=== PATIENT | male | born 1980 | race Caucasian/White ===

== ENCOUNTER → 2017-10-31 10:13 | Outpatient (CLI) | payer MEDICARE, MEDICAID, SELFPAY ==
[2017-10-31 13:55] LABS: Alanine Aminotransferase 29 U/L (12-78); Albumin Level 3.8 gm/dL (3.4-5.0); Alkaline Phosphatase 118 U/L (46-116); Anion Gap 13.5 mEq/L (5-15); Aspartate Amino Transferase 12 U/L (15-37); Bilirubin,Total 0.9 mg/dL (0.2-1.0); Blood Urea Nitrogen 10 mg/dL (7-18); Calcium 9.6 mg/dL (8.5-10.1); Carbon Dioxide 34 mmol/L (21.0-32.0); Chloride 93 mmol/L (98-107); Chol/HDL Ratio 4.5 (1-3.5); Cholesterol 153 mg/dL (140-200); Estimated Glomerular Filt Rate 53 ml/min (>60); GFR (African American) 64 ML/MIN (>60); HDL Cholesterol 34 mg/dL (27-67); LDL Cholesterol 62 mg/dL (0-130); Potassium 4.5 mmoL/L (3.5-5.1); Sodium 136 mmol/L (136-145); Thyroid Stimulating Hormone 2.21 uIU/ml (0.358-3.740); Total Protein,Serum 7.8 gm/dL (6.4-8.2); Triglycerides 284 mg/dL (30-200); VLDL Cholesterol 57 mg/dL (0-40)
[2017-10-31 13:56] LABS: Basophils % 0.7 % (0.1-2.0); Eosinophils # 0.1 K/mm3 (0.0-0.4); Hematocrit 48.1 % (42.0-52.0); Hemoglobin 16.3 g/dL (14.1-18.0); Lymphocytes # 1.7 K/mm3 (0.7-4.5); Lymphocytes % 24.8 K/mm3 (10-50); Mean Corpuscular HGB Conc 33.8 g/dL (31.8-35.4); Mean Corpuscular Hemoglobin 30.4 pg (27.0-31.2); Mean Corpuscular Volume 89.8 fl (80-94); Mean Platelet Volume 8.4 fl (7.4-10.4); Monocytes # 0.5 K/mm3 (0.1-1.0); Monocytes % 7.1 % (1.7-9.3); Neutrophils # 4.4 K/mm3 (1.8-7.8); Neutrophils % 65.5 % (37.0-80.0); Platelet Count 244 K/mm3 (142-424); Red Blood Count 5.36 M/mm3 (4.60-6.20); Red Cell Distribution Width 13.3 % (11.5-17.5); White Blood Count 6.7 K/mm3 (4.8-10.8)
[2017-10-31 14:04] LABS: Glucose 532 mg/dL (74-106)
[2017-10-31 14:39] LABS: Hemoglobin A1C 9.7 % (0.0-7.0)
== END ==
PROVIDERS: PCP Nurse Practitioner Family; Visit Provider Nurse Practitioner Family
DX: I10 Essential (primary) hypertension (principal); E11.9 Type 2 diabetes mellitus without complications
CPT/HCPCS: 36415; 80053; 80061; 83036; 84443; 85025

== ENCOUNTER 2018-01-10 14:08 | Emergency (ER) | payer MEDICARE, MEDICAID, SELFPAY ==
[2018-01-10 14:29] VITALS: BP 158/93; PULSE 111; RESP 20; TEMP 36.6; O2SAT 96; BMI 31.3
--- NOTE | 2018-01-10 14:45 | HMH.EDUTC ---
[facility] [place]: Left anterior shoulder pain Cellulitis Qualifiers: Site of cellulitis: extremity Site of cellulitis of extremity: upper extremity Laterality: left Qualified Code(s): L03.114 - Cellulitis of left upper limb Disposition: Home, Self-Care Condition on Discharge: Good Instructions: DI for Cellulitis -- Adult, DI for Shoulder Pain Additional Instructions: * Start antibiotic(s) immediately and be sure to take as ordered for the FULL length of time although you should start to see improvement over the next 24-48 hours. * Monitor closely. FU immediately for new or worsening symptoms ( including but not limited to redness, swelling, red streaking, fever, chills) AND in 48 hours for recheck. * Monitor Temp. Seek treatment if fever develops. * For pain/inflammation: Tylenol every 4 hours as needed no more then 5 times a day or 4000mg in 24 hours and/or ibuprofen every 6 hours as needed no more then 3200mg in 24 hours (as long as your primary care doctor has told you that it is ok to take both) for aches/pain. * For shoulder, rest, ice/warm compresses (whichever feels better), follow up with primary care. Negative xrays Prescriptions: cephALEXin [Cephalexin 500mg Tab] 500 mg PO QID #40 tab Referrals: Milvia Harris [Primary Care Provider] - (Call today. Request follow up in 48 hours for recheck and to discuss shoulder pain. Seek treatment immediately for any sign of worsening infection.) Time of Disposition: 16:10 Medical Decision Making - Mic Inquiry Pt receiving controlled substance: No Vital Signs: 01/10/18 14:29 Temperature 97.9 F Temperature Source Temporal Artery Scan Pulse Rate [Brachial] 111 H Respiratory Rate 20 Blood Pressure [Right Arm] 158/93 Blood Pressure Mean [Right Arm] 114 Blood Pressure Position [Right Arm] Sitting 02 Sat by Pulse Oximetry 96 - Radiology Data #1 Image(s): Shoulder, Wrist Image Reviewed: Yes I have reviewed radiologist's interpretation Preliminary Findings: Normal/NAD 1535: called to review w/ ER , Dr. Allen. Jamel, liquor rectifier, took message. Anshul then called [facility] and said to call radiologist as Dr. Allen not available. 1538: Osmin will complete yellow slip for radiologist to review. [facility] [place] - General Stated complaint: Knot on left shoulder & wrist pain Time Seen by Provider: 01/10/18 14:45 Mode of Arrival: Ambulatory Source of Information: Patient Limitations: No Limitations Description of Symptoms (Recalled from Triage Doc. by RN): PT STATES HE FELL ON 01/01 AND INJURIED HIS LEFT SHOULDER AND LEFT HAND. HE HAS NOT GOTTEN ANY BETTER SINCE THEN. HEENT Symptoms (Recalled from RN notes): No Resp Symptoms (Recalled from RN notes): No Skin Symptoms (Recalled from RN notes): No MS Symptoms (Recalled from RN notes): Yes Functional Status (Recalled from RN notes): NA - History of Present Illness Provider Complaint: Here w/ sister (POA) c/o left anterior shoulder pain. Thinks it feels swollen. Denies limited ROM. Also redness to dorsal aspect left hand. tender to touch. Stating both occurred after a fall (or possibly multiple falls) on (and around) 01/01. Sister reporting that at that time, pt was told to stop amitriptyline (2 tablets) and start doxepin for insomnia. He mixed up the medications and instead, took two doxepin. Sister reports pt was medication drunk and fell who knows how many times. No one is sure how he fell/landed. She has since gotten rid of all the discontinued medications and had pharmacy cancel any refills on discontinued medications. Patient hasn't fallen since. - Related Data Home Medications Medication Instructions Recorded Confirmed Canagliflozin [Invokana] 100 mg PO DAILY 01/10/18 01/10/18 Doxepin HCl [Sinequin 50mg capsule] 50 mg PO DAILY 01/10/18 01/10/18 Metformin HCl [Metformin HCl ER] 1,000 mg PO DAILY 01/10/18 01/10/18 glipiZIDE [Glipizide ER] 10 mg PO BID 01/10/18 01/10/18 Previous Rx's Medicatio
--- NOTE | 2018-01-10 14:54 | XR_ITS ---
XR shoulder LT min 2V HISTORY: ITS.REASON: fall 01/01, left anterior shoulder pain, no LROM ORDERING PHYSICIAN: David Michele PATIENT AGE: 37 years COMPARISON: None FINDINGS: No fracture or dislocation. No lytic or blastic change. There is normal mineralization. The joint spaces are well-preserved. No significant degenerative/arthritic changes. No erosive changes evident. IMPRESSION: Negative, no acute finding
--- NOTE | 2018-01-10 14:54 | XR_ITS ---
XR wrist LT min 3V HISTORY: ITS.REASON: fall 01/01, pain anterior wrist ORDERING PHYSICIAN: David Michele PATIENT AGE: 37 years COMPARISON: None FINDINGS: No fracture or dislocation. No lytic or blastic change. There is normal mineralization.. The joint spaces are well-preserved. No significant degenerative/arthritic changes. No erosive changes evident.. Nonspecific calcification is present along the anterolateral aspect of the of the distal radius at the radial styloid process. There is an old fracture of the scaphoid versus a bipartite scaphoid IMPRESSION: 1. No acute finding. 2. Bipartite scaphoid
--- NOTE | 2018-01-10 14:54 | ED_ITS ---
[facility] [place] Clinical Impression: Left anterior shoulder pain Cellulitis Qualifiers: Site of cellulitis: extremity Site of cellulitis of extremity: upper extremity Laterality: left Qualified Code(s): L03.114 - Cellulitis of left upper limb Disposition: Home, Self-Care Condition on Discharge: Good Instructions: DI for Cellulitis -- Adult, DI for Shoulder Pain Additional Instructions: * Start antibiotic(s) immediately and be sure to take as ordered for the FULL length of time although you should start to see improvement over the next 24-48 hours. * Monitor closely. FU immediately for new or worsening symptoms ( including but not limited to redness, swelling, red streaking, fever, chills) AND in 48 hours for recheck. * Monitor Temp. Seek treatment if fever develops. * For pain/inflammation: Tylenol every 4 hours as needed no more then 5 times a day or 4000mg in 24 hours and/or ibuprofen every 6 hours as needed no more then 3200mg in 24 hours (as long as your primary care doctor has told you that it is ok to take both) for aches/pain. * For shoulder, rest, ice/warm compresses (whichever feels better), follow up with primary care. Negative xrays Prescriptions: cephALEXin [Cephalexin 500mg Tab] 500 mg PO QID #40 tab Referrals: Milvia Harris [Primary Care Provider] - (Call today. Request follow up in 48 hours for recheck and to discuss shoulder pain. Seek treatment immediately for any sign of worsening infection.) Time of Disposition: 16:10 Medical Decision Making - Mic Inquiry Pt receiving controlled substance: No Vital Signs: 01/10/18 14:29 Temperature 97.9 F Temperature Source Temporal Artery Scan Pulse Rate [Brachial] 111 H Respiratory Rate 20 Blood Pressure [Right Arm] 158/93 Blood Pressure Mean [Right Arm] 114 Blood Pressure Position [Right Arm] Sitting 02 Sat by Pulse Oximetry 96 - Radiology Data #1 Image(s): Shoulder, Wrist Image Reviewed: Yes I have reviewed radiologist's interpretation Preliminary Findings: Normal/NAD 1535: called to review w/ ER , Dr. Allen. Jamel, motocross racer, took message. Anshul then called [facility] and said to call radiologist as Dr. Allen not available. 1538: Osmin will complete yellow slip for radiologist to review. [facility] [place] HPI - General Stated complaint: Knot on left shoulder & wrist pain Time Seen by Provider: 01/10/18 14:45 Mode of Arrival: Ambulatory Source of Information: Patient Limitations: No Limitations Description of Symptoms (Recalled from Triage Doc. by RN): PT STATES HE FELL ON 01/01 AND INJURIED HIS LEFT SHOULDER AND LEFT HAND. HE HAS NOT GOTTEN ANY BETTER SINCE THEN. HEENT Symptoms (Recalled from RN notes): No Resp Symptoms (Recalled from RN notes): No Skin Symptoms (Recalled from RN notes): No MS Symptoms (Recalled from RN notes): Yes Functional Status (Recalled from RN notes): NA - History of Present Illness Provider Complaint: Here w/ sister (POA) c/o left anterior shoulder pain. Thinks it feels swollen. Denies limited ROM. Also redness to dorsal aspect left hand. tender to touch. Stating both occurred after a fall (or possibly multiple falls) on (and around) 01/01. Sister reporting that at that time, pt was told to stop amitriptyline (2 tablets) and start doxepin for insomnia. He mixed up the medications and instead, took two doxepin. Sister reports pt was medication drunk and fell who knows how many times. No one is sure how he fell/landed. She has since gotten rid of all the discontinued medications and had pharmacy cancel a
[2018-01-10 16:10] VITALS: BP 158/93; PULSE 111; RESP 20; TEMP 36.6; O2SAT 96
== END 2018-01-10 16:15 | disposition home or self-care (01) ==
PROVIDERS: Emergency Provider Nurse Practitioner Family; PCP Family Medicine
DX: M25.512 Pain in left shoulder (principal); L03.114 Cellulitis of left upper limb; E11.9 Type 2 diabetes mellitus without complications; I10 Essential (primary) hypertension; F17.210 Nicotine dependence, cigarettes, uncomplicated
CPT/HCPCS: G0463; 73030; 73110; 99201

== ENCOUNTER → 2018-01-18 10:17 | Outpatient (CLI) | payer MEDICARE, MEDICAID, SELFPAY ==
--- NOTE | 2018-01-18 10:26 | XR_ITS ---
XR hand LT min 3V HISTORY: ITS.REASON: FALL,LT HAND PAIN,LT HIP PAIN,RT FOOT PAIN ORDERING PHYSICIAN: Sola Blanco PATIENT AGE: 37 years COMPARISON: None FINDINGS: No fracture or dislocation. No lytic or blastic change. There is normal mineralization.. The joint spaces are well-preserved. No significant degenerative/arthritic changes. No erosive changes evident.. There is a small rounded calcific density lateral to the distal aspect of the radius and may be due to an accessory center of ossification IMPRESSION: Negative, no acute finding
--- NOTE | 2018-01-18 10:26 | XR_ITS ---
XR hip LT 2-3V w/pelvis HISTORY: Left hip pain following injury ITS.REASON: FALL,LT HAND PAIN,LT HIP PAIN,RT FOOT PAIN ORDERING PHYSICIAN: Sola Blanco PATIENT AGE: 37 years COMPARISON: None FINDINGS: No fracture or dislocation is evident. No significant degenerative change. No lytic or blastic change. Unremarkable soft tissues. Mild endplate spurring is present on the right at L4-L5 IMPRESSION: Negative hip
--- NOTE | 2018-01-18 10:26 | XR_ITS ---
Right Foot 3 Views HISTORY: Right foot pain following injury ITS.REASON: FALL LT HAND PAIN, LT HIP PAIN,RT FOOT PAIN ORDERING PHYSICIAN: Sola Blanco PATIENT AGE: 37 years COMPARISON: None FINDINGS: No fracture or dislocation. No lytic or blastic change. There is normal mineralization.. The joint spaces are well-preserved. No significant degenerative/arthritic changes. No erosive changes evident. There is flexion of the second through fifth toes IMPRESSION: No acute finding. Flexion of the second through fifth toes of questioned clinical significance
== END ==
PROVIDERS: PCP Emergency Medicine; Visit Provider Nurse Practitioner Family
DX: M79.642 Pain in left hand (principal); M25.552 Pain in left hip; M79.671 Pain in right foot
CPT/HCPCS: 73130; 73502; 73630

== ENCOUNTER → 2019-12-05 09:44 | Outpatient (CLI) | payer MEDICARE, MEDICAID, SELFPAY ==
[2019-12-05 10:24] LABS: Basophils # 0.1 K/mm3 (0-0.2); Basophils % 1.1 % (0.1-2.0); Eosinophils # 0.4 K/mm3 (0.0-0.4); Eosinophils % 8.1 % (0.1-12.0); Hematocrit 48.8 % (42.0-52.0); Hemoglobin 16.3 g/dL (14.1-18.0); Lymphocytes # 1.3 K/mm3 (0.7-4.5); Lymphocytes % 28.8 % (10-50); Mean Corpuscular HGB Conc 33.4 g/dL (31.8-35.4); Mean Corpuscular Hemoglobin 30.3 pg (27.0-31.2); Mean Corpuscular Volume 90.5 fl (80-94); Mean Platelet Volume 9.1 fl (7.4-10.4); Monocytes # 0.3 K/mm3 (0.1-1.0); Neutrophils # 2.6 K/mm3 (1.8-7.8); Platelet Count 234 K/mm3 (142-424); Red Blood Count 5.39 M/mm3 (4.60-6.20); Red Cell Distribution Width 13.4 % (11.5-17.5); White Blood Count 4.7 K/mm3 (4.8-10.8)
[2019-12-05 11:47] LABS: Alanine Aminotransferase 43 U/L (21-72); Albumin Level 4.5 g/dL (3.4-5.0); Albumin/Globulin Ratio 1.4 (1.1-1.8); Alkaline Phosphatase 62 U/L (46-116); Anion Gap 14.3 mEq/L (5-15); Aspartate Amino Transferase 24 U/L (15-37); Bilirubin,Total 0.7 mg/dL (0.2-1.0); Blood Urea Nitrogen 18 mg/dL (7-18); Calcium 9.7 mg/dL (8.5-10.1); Carbon Dioxide 30 mmol/L (21.0-32.0); Chloride 104 mmol/L (98-107); Cholesterol 90 mg/dL (140-200); Creatinine,Serum 1.42 mg/dL (0.70-1.30); Estimated Glomerular Filt Rate 56 ml/min (>60); GFR (African American) 67 ML/MIN (>60); Globulin 3.3 gm/dl (1.3-3.2); Glucose 157 mg/dL (74-106); HDL Cholesterol 30 mg/dL (27-67); LDL Cholesterol 44 mg/dL (0-130); Potassium 5.3 mmoL/L (3.5-5.1); Sodium 143 mmol/L (137-145); T4 (Thyroxine) 7.7 ug/dl (4.7-13.3); Thyroid Stimulating Hormone 2.81 uIU/ml (0.358-3.740); Total Protein,Serum 7.8 g/dL (6.4-8.2); Triglycerides 80 mg/dL (30-200); VLDL Cholesterol 16 mg/dL (0-40)
[2019-12-05 19:48] LABS: Hemoglobin A1C 6.2 % (0.0-7.0)
[2019-12-06 10:51] LABS: Vitamin D 25 Hydroxy 15.7 ng/mL (30.0-100.0)
[2019-12-06 11:01] LABS: Creatinine, Urine 174.1 mg/dL (Not Estab.); Microalbumin, Urine 4.5 ug/mL (Not Estab.)
== END ==
PROVIDERS: Visit Provider Nurse Practitioner Family
DX: E11.9 Type 2 diabetes mellitus without complications (principal); I10 Essential (primary) hypertension; E55.9 Vitamin D deficiency, unspecified; Z79.84 Long term (current) use of oral hypoglycemic drugs
CPT/HCPCS: 36415; 80053; 80061; 82043; 82570; 82652; 83036; 84436; 84443; 85025

== ENCOUNTER → 2019-12-17 08:37 | Outpatient (CLI) | payer MEDICARE, MEDICAID, SELFPAY ==
[2019-12-17 11:15] LABS: Chloride 95 mmol/L (98-107); Potassium 5.3 mmoL/L (3.5-5.1); Sodium 136 mmol/L (136-145)
[2019-12-17 11:18] LABS: Anion Gap 17.3 mEq/L (5-15); Blood Urea Nitrogen 20 mg/dl (9-20); Calcium 10.4 mg/dl (8.4-10.2); Carbon Dioxide 29 mmol/L (22.0-30.0); Estimated Glomerular Filt Rate 61 ml/min (>60); GFR (African American) 74 ML/MIN (>60); Glucose 342 mg/dl (74-100)
== END ==
PROVIDERS: Visit Provider Nurse Practitioner Family
DX: E87.5 Hyperkalemia (principal); R79.89 Other specified abnormal findings of blood chemistry
CPT/HCPCS: 36415; 80048

== ENCOUNTER → 2020-02-26 14:59 | Outpatient (CLI) | payer MEDICARE, MEDICAID, SELFPAY ==
[2020-02-26 15:47] LABS: Chloride 101 mmol/L (98-107); Potassium 5.2 mmoL/L (3.5-5.1); Sodium 141 mmol/L (136-145)
[2020-02-26 15:49] LABS: Alanine Aminotransferase 23 U/L (12-78); Alkaline Phosphatase 53 U/L (38-126); Aspartate Amino Transferase 31 U/L (17-59); Bilirubin,Total 0.7 mg/dl (0.2-1.3); Blood Urea Nitrogen 19 mg/dl (9-20); Estimated Glomerular Filt Rate 67 ml/min (>60); GFR (African American) 81 ML/MIN (>60)
[2020-02-26 15:50] LABS: Albumin Level 5.2 g/dl (3.5-5.0); Albumin/Globulin Ratio 1.7 (1.1-1.8); Anion Gap 16.2 mEq/L (5-15); Calcium 10.4 mg/dl (8.4-10.2); Carbon Dioxide 29 mmol/L (22.0-30.0); Chol/HDL Ratio 2.4 (1-3.5); Cholesterol 97 mg/dl (140-200); Globulin 3.1 g/dL (1.3-3.2); Glucose 82 mg/dl (74-100); HDL Cholesterol 40 mg/dl (40-60); Total Protein,Serum 8.3 g/dl (6.3-8.2); Triglycerides 102 mg/dl (30-150); VLDL Cholesterol 20 mg/dL (0-40)
[2020-02-26 15:55] LABS: Basophils # 0.1 K/mm3 (0-0.2); Basophils % 2.3 % (0.1-2.0); Eosinophils # 0.1 K/mm3 (0.0-0.4); Eosinophils % 2.6 % (0.1-12.0); Hematocrit 50.1 % (42.0-52.0); Hemoglobin 16.1 g/dL (14.1-18.0); Lymphocytes # 1.4 K/mm3 (0.7-4.5); Lymphocytes % 31.6 % (10-50); Mean Corpuscular HGB Conc 32.2 g/dL (31.8-35.4); Mean Corpuscular Hemoglobin 30.3 pg (27.0-31.2); Mean Corpuscular Volume 94.3 fl (80-94); Mean Platelet Volume 8.9 fl (7.4-10.4); Monocytes # 0.3 K/mm3 (0.1-1.0); Neutrophils # 2.6 K/mm3 (1.8-7.8); Neutrophils % 56.4 % (37.0-80.0); Platelet Count 253 K/mm3 (142-424); Red Blood Count 5.31 M/mm3 (4.60-6.20); Red Cell Distribution Width 13.3 % (11.5-17.5); White Blood Count 4.5 K/mm3 (4.8-10.8)
[2020-02-26 16:02] LABS: Direct LDL Cholesterol 55.81 mg/dL (100-129)
[2020-02-26 16:09] LABS: T4 (Thyroxine) 8.7 ug/dl (5.53-11.0)
[2020-02-26 16:22] LABS: Thyroid Stimulating Hormone 3.54 uIU/mL (0.465-4.68)
[2020-02-26 20:45] LABS: Hemoglobin A1C 6.4 % (4.0-6.0)
[2020-02-28 11:20] LABS: Vitamin D 25 Hydroxy 39.7 ng/mL (30.0-100.0)
== END ==
PROVIDERS: Visit Provider Nurse Practitioner Family
DX: E11.9 Type 2 diabetes mellitus without complications (principal); Z79.84 Long term (current) use of oral hypoglycemic drugs
CPT/HCPCS: 80053; 80061; 82652; 83036; 84436; 84443; 85025

== ENCOUNTER → 2020-03-13 11:59 | Outpatient (CLI) | payer MEDICARE, MEDICAID, SELFPAY ==
[2020-03-13 13:35] LABS: Anion Gap 13.1 mEq/L (5-15); Blood Urea Nitrogen 24 mg/dl (9-20); Calcium 10.1 mg/dl (8.4-10.2); Carbon Dioxide 28 mmol/L (22.0-30.0); Chloride 101 mmol/L (98-107); Estimated Glomerular Filt Rate 61 ml/min (>60); GFR (African American) 74 ML/MIN (>60); Glucose 214 mg/dl (74-100); Potassium 5.1 mmoL/L (3.5-5.1); Sodium 137 mmol/L (136-145)
== END ==
PROVIDERS: Visit Provider Nurse Practitioner Family
DX: E87.5 Hyperkalemia (principal)
CPT/HCPCS: 36415; 80048

== ENCOUNTER → 2020-05-05 14:15 | Outpatient (CLI) | payer MEDICARE, MEDICAID, SELFPAY ==
--- NOTE | 2020-05-05 14:17 | XR_ITS ---
PROCEDURE: XR FOOT WT BEARING RT 3V CLINICAL INDICATION: pain COMPARISON: FTR3 FOOT-RT-3 VIEWS from 07/08/2014 [id number] XR foot RT min 3V from 01/18/2018 XR ANKLE WT BEARING RT MIN 3V from 05/05/2020 FINDINGS: No fracture or dislocation. No lytic or blastic change. There is normal mineralization. There is mild osteoarthritis with minimal hallux valgus of the 1st metatarsophalangeal joint with mild soft tissue swelling medially small area of dystrophic calcification noted at the talonavicular region anteriorly with borderline pes planus. Flexion deformity involves the 2nd toe. The There are minimal degenerative changes of the anterior aspect of the tail 0 tibial joint. There is a prominent posterior talar process of the talus Other findings:None. IMPRESSION: Minimal hallux valgus with mild osteoarthritis 1st MTP joint, flexion deformity 2nd toe, pes planus Mild osteoarthritic changes of the ankle with prominent posterior talar process noted Dictated by: Froy Markham MD 05/05/2020 14:51 Electronically signed by Froy Markham MD in [place] 05/05/2020 14:51
--- NOTE | 2020-05-05 14:17 | XR_ITS ---
PROCEDURE: XR FOOT WT BEARING RT 3V CLINICAL INDICATION: pain COMPARISON: FTR3 FOOT-RT-3 VIEWS from 07/08/2014 [id number] XR foot RT min 3V from 01/18/2018 XR ANKLE WT BEARING RT MIN 3V from 05/05/2020 FINDINGS: No fracture or dislocation. No lytic or blastic change. There is normal mineralization. There is mild osteoarthritis with minimal hallux valgus of the 1st metatarsophalangeal joint with mild soft tissue swelling medially small area of dystrophic calcification noted at the talonavicular region anteriorly with borderline pes planus. Flexion deformity involves the 2nd toe. The There are minimal degenerative changes of the anterior aspect of the tail 0 tibial joint. There is a prominent posterior talar process of the talus Other findings:None. IMPRESSION: Minimal hallux valgus with mild osteoarthritis 1st MTP joint, flexion deformity 2nd toe, pes planus Mild osteoarthritic changes of the ankle with prominent posterior talar process noted Dictated by: Froy Markham MD 05/05/2020 14:51 Electronically signed by Froy Markham MD in [place] 05/05/2020 14:51
--- NOTE | 2020-05-05 14:17 | XR_ITS ---
PROCEDURE: XR ANKLE WT BEARING LT MIN 3V CLINICAL INDICATION: wound Pain COMPARISON: XR FOOT WT BEARING LT 3V from 05/05/2020 FINDINGS: Minimal spurring along the anterior distal tibia. Postsurgical changes of the foot with a screw within the proximal aspect of the 3rd metatarsal. Hammertoe deformity involves the 2nd and 3rd digit IMPRESSION: Postsurgical and degenerative changes Dictated by: Froy Markham MD 05/05/2020 14:53 Electronically signed by Froy Markham MD in [place] 05/05/2020 14:53
[2020-05-05 14:51] LABS: Basophils % 0.7 % (0.1-2.0); Eosinophils # 0.1 K/mm3 (0.0-0.4); Eosinophils % 2.5 % (0.1-12.0); Hematocrit 45.8 % (42.0-52.0); Hemoglobin 15.9 g/dL (14.1-18.0); Lymphocytes # 1.9 K/mm3 (0.7-4.5); Lymphocytes % 36.5 % (10-50); Mean Corpuscular HGB Conc 34.8 g/dL (31.8-35.4); Mean Corpuscular Hemoglobin 31.2 pg (27.0-31.2); Mean Corpuscular Volume 89.6 fl (80-94); Mean Platelet Volume 7.5 fl (7.4-10.4); Monocytes # 0.3 K/mm3 (0.1-1.0); Monocytes % 5.7 % (1.7-9.3); Neutrophils # 2.9 K/mm3 (1.8-7.8); Neutrophils % 54.7 % (37.0-80.0); Platelet Count 203 K/mm3 (142-424); Red Blood Count 5.11 M/mm3 (4.60-6.20); Red Cell Distribution Width 13.4 % (11.5-17.5); White Blood Count 5.3 K/mm3 (4.8-10.8)
[2020-05-05 15:17] LABS: Erythrocyte Sedimentation Rate 2 mm/hr (0-15)
[2020-05-05 15:39] LABS: Chloride 99 mmol/L (98-107); Potassium 5.2 mmoL/L (3.5-5.1); Sodium 141 mmol/L (136-145)
[2020-05-05 15:42] LABS: Alanine Aminotransferase 32 U/L (12-78); Albumin Level 4.5 g/dl (3.5-5.0); Albumin/Globulin Ratio 1.6 (1.1-1.8); Alkaline Phosphatase 47 U/L (38-126); Anion Gap 16.2 mEq/L (5-15); Aspartate Amino Transferase 31 U/L (17-59); Bilirubin,Total 0.8 mg/dl (0.2-1.3); Blood Urea Nitrogen 19 mg/dl (9-20); Calcium 9.6 mg/dl (8.4-10.2); Carbon Dioxide 31 mmol/L (22.0-30.0); Estimated Glomerular Filt Rate 61 ml/min (>60); GFR (African American) 74 ML/MIN (>60); Globulin 2.8 g/dL (1.3-3.2); Glucose 165 mg/dl (74-100); Total Protein,Serum 7.3 g/dl (6.3-8.2)
[2020-05-05 15:48] LABS: C-Reactive Protein 1.2 mg/L (0-4)
== END ==
PROVIDERS: PCP Nurse Practitioner Family; Visit Provider Podiatrist
DX: E11.8 Type 2 diabetes mellitus with unspecified complications (principal); E11.621 Type 2 diabetes mellitus with foot ulcer; L97.509 Non-pressure chronic ulcer of other part of unspecified foot with unspecified severity
CPT/HCPCS: 36415; 73610; 73630; 80053; 85025; 85651; 86140

== ENCOUNTER 2020-05-19 18:35 | Emergency (ER) | payer MEDICARE, MEDICAID, SELFPAY ==
[2020-05-19 18:43] VITALS: BP 150/108; PULSE 120; RESP 16; TEMP 37.2; O2SAT 98; BMI 28.0
--- NOTE | 2020-05-19 18:44 | XR_ITS ---
PROCEDURE: XR FOOT RT MIN 3V CLINICAL INDICATION: fall two days ago with generalized swelling Pain COMPARISON: No exams were available for comparison FINDINGS: There is mild hallux valgus with mild osteoarthritic change of the 1st MTP joint. There is a 2 mm density along the medial aspect and distal aspect of the proximal phalanx of the 2nd toe suggesting an area dystrophic calcification or a radiopaque foreign body. No obvious fracture or dislocation. The joint spaces are well-preserved. No significant degenerative/arthritic changes. No erosive changes evident. Other findings:None. IMPRESSION: No acute fracture. Possible foreign body at the 2nd toe Dictated by: Froy Markham MD 05/20/2020 07:03 Electronically signed by Froy Markham MD in [place] 05/20/2020 07:03
--- NOTE | 2020-05-19 18:49 | HMH.EDLOEX ---
ED Disposition Clinical Impression: Cellulitis of foot Foot contusion Qualifiers: Encounter type: initial encounter Laterality: right Qualified Code(s): S90.31XA - Contusion of right foot, initial encounter Disposition: Home, Self-Care Condition on Discharge: Good Instructions: DI for Cellulitis -- Adult, DI for Contusion Additional Instructions: Follow-up with your tool checker in 2 to 3 days for reevaluation. Return to the emergency department for worsening symptoms, fever, other acute new concerns. Prescriptions: Doxycycline Hyclate [Doxycycline 100mg Capsule] 100 mg PO BID 7 Days #14 cap Prescription Printed - Critical Care Critical Care Time: No Attestation: On 05/19/20, the high probability of a clinically significant, sudden or life threatening deterioration of the following system(s) required my full and direct attention, intervention and personal management. The time I documented below is in addition to time spent performing reported procedures but includes the following listed in this critical care notation. Medical Decision Making - Medical Records Medical records reviewed: Yes: I reviewed the patient's medical records. - Mic Inquiry Pt receiving controlled substance: No Vital Signs: 05/19/20 18:43 Temperature 99 F Temperature Source Oral Pulse Rate [Left Radial] 120 H Respiratory Rate 16 Blood Pressure [Right Arm] 150/108 H Blood Pressure Mean [Right Arm] 122 Blood Pressure Position [Right Arm] Sitting 02 Sat by Pulse Oximetry 98 Oxygen Delivery Method Room Air Orders (Tests/Meds): ED MEDICATIONS Discontinued Medications Generic Name Dose Route Start Last Admin Trade Name Freq PRN Reason Stop Dose Admin Doxycycline Hyclate 100 mg 05/19/20 18:52 Vibra-Tab 100mg Tablet PO 05/19/20 18:53 ONCE STA Protocol Tetanus/Reduced Diphtheria/Acell Pertussis 0.5 ml 05/19/20 18:48 Adacel Tdap 0.5ml Syringe IM 05/19/20 18:49 .ONCE ONE ORDERS Category Date Time Status Foot XR right minimum 3 views [XR foot RT min 3V] Stat Exams 05/19/20 18:44 Taken - Radiology Data #1 Image(s): Foot/Toes Image Reviewed: Yes I reviewed the patient's radiology image Preliminary Findings: No Fracture Seen Medical Decision Narrative: Patient with cellulitis on the dorsum of the foot. X-ray shows no acute fracture or dislocation. He has chronic deformities of the toes. given doxycycline here and a prescription for the same outpatient. Advise follow-up with podiatry within the next several days. They actually already have an appointment in 2 days time. No abscess. Lower Extremity Injury HPI - General Stated Complaint: AO pulled off porch injured R foot 05/17/20 Time Seen by Provider: 05/19/20 18:49 Mode of Arrival: Ambulatory Source of Information: Patient, Spouse Limitations: No Limitations Description of Symptoms (Recalled from ER Triage Doc. by RN): TO ED PER PVT CAR PT STATES PULLED OFF PORCH BY DOG MONDAY INJURED RT FOOT. RT FOOT WITH SWELLING, REDNESS NOTED PT STATES HX OF NEUROPATHY. PT DENIES ANY NAUSEA, VOMITING, FEVER, CHILLS - History of Present Illness HPI Narrative: This is a 39-year-old male with a past medical history significant for diabetes, peripheral neuropathy who presents to the emergency department for evaluation of right foot injury 2 days ago. He had his dog on a leash and his dog saw a squirrel, ran and pulled the patient off of the porch. He sustained some bruising to the distal portion of the right foot and over the last 2 days has developed some redness over the dorsum of the foot. He is concerned about possible cellulitis. No fevers, vomiting, diarrhea. He has no pain in the foot because of his peripheral neuropathy. - Related Data Home Medications Medication Instructions Recorded Confirmed blood sugar diagnostic See Rx Instructions .ROUTE 12/04/19 05/12/20 .MEDSUPPLY #10 each blood-glucose meter See Rx Instru
[2020-05-19 19:13] VITALS: PULSE 109
[2020-05-19 19:21] VITALS: BP 158/88; PULSE 109; RESP 16; TEMP 36.7; O2SAT 98
== END 2020-05-19 19:23 | disposition home or self-care (01) ==
PROVIDERS: Emergency Provider Emergency Medicine; PCP Nurse Practitioner Family
DX: L03.115 Cellulitis of right lower limb (principal); S90.31XA Contusion of right foot, initial encounter; W17.89XA Other fall from one level to another, initial encounter; Y92.018 Other place in single-family (private) house as the place of occurrence of the external cause; E11.9 Type 2 diabetes mellitus without complications; Z79.84 Long term (current) use of oral hypoglycemic drugs; E78.5 Hyperlipidemia, unspecified; I10 Essential (primary) hypertension; Z23 Encounter for immunization
CPT/HCPCS: 73630; 90471; 90715; 99282

== ENCOUNTER → 2020-06-11 12:16 | Outpatient (CLI) | payer MEDICARE, MEDICAID, SELFPAY ==
[2020-06-11 12:25] LABS: Basophils # 0.1 K/mm3 (0-0.2); Basophils % 1.1 % (0.1-2.0); Eosinophils # 0.3 K/mm3 (0.0-0.4); Eosinophils % 5.4 % (0.1-12.0); Hematocrit 51.3 % (42.0-52.0); Hemoglobin 17.3 g/dL (14.1-18.0); Lymphocytes # 1.6 K/mm3 (0.7-4.5); Lymphocytes % 29.7 % (10-50); Mean Corpuscular HGB Conc 33.7 g/dL (31.8-35.4); Mean Corpuscular Volume 91.9 fl (80-94); Mean Platelet Volume 7.9 fl (7.4-10.4); Monocytes # 0.3 K/mm3 (0.1-1.0); Monocytes % 4.8 % (1.7-9.3); Neutrophils # 3.2 K/mm3 (1.8-7.8); Neutrophils % 58.9 % (37.0-80.0); Platelet Count 247 K/mm3 (142-424); Red Blood Count 5.59 M/mm3 (4.60-6.20); Red Cell Distribution Width 13.6 % (11.5-17.5); White Blood Count 5.5 K/mm3 (4.8-10.8)
[2020-06-11 12:30] LABS: Alanine Aminotransferase 44 U/L (12-78); Albumin/Globulin Ratio 1.5 (1.1-1.8); Alkaline Phosphatase 83 U/L (38-126); Anion Gap 18.7 mEq/L (5-15); Aspartate Amino Transferase 41 U/L (17-59); Bilirubin,Total 0.9 mg/dl (0.2-1.3); Blood Urea Nitrogen 14 mg/dl (9-20); Calcium 10.2 mg/dl (8.4-10.2); Carbon Dioxide 28 mmol/L (22.0-30.0); Chloride 99 mmol/L (98-107); Chol/HDL Ratio 2.8 (1-3.5); Cholesterol 97 mg/dl (140-200); Estimated Glomerular Filt Rate 67 ml/min (>60); GFR (African American) 81 ML/MIN (>60); Globulin 3.3 g/dL (1.3-3.2); Glucose 200 mg/dl (74-100); HDL Cholesterol 35 mg/dl (40-60); Potassium 4.7 mmoL/L (3.5-5.1); Sodium 141 mmol/L (136-145); Total Protein,Serum 8.3 g/dl (6.3-8.2); Triglycerides 188 mg/dl (30-150); VLDL Cholesterol 38 mg/dL (0-40)
[2020-06-11 12:41] LABS: Direct LDL Cholesterol 46.24 mg/dL (100-129)
[2020-06-11 12:47] LABS: T4 (Thyroxine) 6.7 ug/dl (5.53-11.0)
[2020-06-11 13:00] LABS: Thyroid Stimulating Hormone 2.91 uIU/mL (0.465-4.68)
[2020-06-11 13:26] LABS: Hemoglobin A1C 7.8 % (4.0-6.0)
[2020-06-21 18:47] LABS: 1,25 Dihydroxy Vitamin D 37 pg/mL (.); 1,25-Dihydroxy, Vitamin D-2 18 pg/mL (.); 1,25-Dihydroxy, Vitamin D-3 19 pg/mL (.)
== END ==
PROVIDERS: Visit Provider Nurse Practitioner Family
DX: E11.9 Type 2 diabetes mellitus without complications (principal); R53.83 Other fatigue; S90.30XA Contusion of unspecified foot, initial encounter; R20.8 Other disturbances of skin sensation; Z79.84 Long term (current) use of oral hypoglycemic drugs
CPT/HCPCS: 80053; 80061; 82652; 83036; 84436; 84443; 85025

== ENCOUNTER → 2020-10-14 12:03 | Outpatient (CLI) | payer MEDICARE, MEDICAID, SELFPAY ==
--- NOTE | 2020-10-14 12:08 | XR_ITS ---
PROCEDURE: XR FOOT WT BEARING LT 3V CLINICAL INDICATION: foot pain COMPARISON: CR [id number] XR foot RT min 3V from 01/18/2018 CR XR FOOT WT BEARING LT 3V from 05/05/2020 CR XR FOOT WT BEARING RT 3V from 05/05/2020 CR XR FOOT RT MIN 3V from 05/19/2020 FINDINGS: There is mild metatarsus varus. A small screws present in the proximal aspect of the 3rd metatarsal. Hammertoe deformity the 2nd and 3rd digit. Mild hypertrophic change along dorsal and proximal aspect of the navicular noted. There is fusion of the 2nd PIP joint. IMPRESSION: No acute finding. Chronic changes as described above Dictated by: Froy Markham MD 10/14/2020 14:59 Froy Markham MD in [place] 10/14/2020 14:59
--- NOTE | 2020-10-14 12:08 | XR_ITS ---
PROCEDURE: XR FOOT WT BEARING RT 3V CLINICAL INDICATION: foot pain COMPARISON: CR [id number] XR foot RT min 3V from 01/18/2018 CR XR FOOT WT BEARING LT 3V from 05/05/2020 CR XR FOOT WT BEARING RT 3V from 05/05/2020 CR XR FOOT RT MIN 3V from 05/19/2020 FINDINGS: There is mild hallux valgus with mild osteoarthritic change and bunion formation at the 1st metatarsophalangeal joint. There is some fragmentation at the distal aspect of the 2nd metatarsal consistent with Freiberg infarction/avascular necrosis. This has developed since the previous exam. Hammertoe deformity involves the 2nd 3rd and 4th toes. There is some cortical thickening involving the distal aspect of the 2nd metatarsal which may be due to old fracture. Other findings:There is mild pes planus IMPRESSION: 1. Pes planus with hallux valgus and osteoarthritis at the 1st MTP joint with bunion formation 2. 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 There is some cortical thickening of the 2nd metatarsal distally. Dictated by: Froy Markham MD 10/14/2020 14:58 Froy Markham MD in [place] 10/14/2020 14:58
[2020-10-14 13:24] LABS: Basophils % 0.4 % (0.1-2.0); Eosinophils # 0.1 K/mm3 (0.0-0.4); Hematocrit 47.3 % (42.0-52.0); Lymphocytes # 1.6 K/mm3 (0.7-4.5); Lymphocytes % 24.4 % (10-50); Mean Corpuscular HGB Conc 31.7 g/dL (31.8-35.4); Mean Corpuscular Hemoglobin 29.6 pg (27.0-31.2); Mean Corpuscular Volume 93.3 fl (80-94); Monocytes # 0.3 K/mm3 (0.1-1.0); Monocytes % 5.1 % (1.7-9.3); Neutrophils # 4.4 K/mm3 (1.8-7.8); Neutrophils % 68.1 % (37.0-80.0); Platelet Count 346 K/mm3 (142-424); Red Blood Count 5.07 M/mm3 (4.60-6.20); Red Cell Distribution Width 13.6 % (11.5-17.5); White Blood Count 6.5 K/mm3 (4.8-10.8)
[2020-10-14 13:47] LABS: Hemoglobin A1C 7.4 % (4.0-6.0)
[2020-10-14 15:08] LABS: Alanine Aminotransferase 19 U/L (12-78); Albumin Level 4.7 g/dl (3.5-5.0); Albumin/Globulin Ratio 1.4 (1.1-1.8); Alkaline Phosphatase 59 U/L (38-126); Anion Gap 13.7 mEq/L (5-15); Aspartate Amino Transferase 25 U/L (17-59); Bilirubin,Total 0.5 mg/dl (0.2-1.3); Blood Urea Nitrogen 17 mg/dl (9-20); Calcium 10.2 mg/dl (8.4-10.2); Carbon Dioxide 28 mmol/L (22.0-30.0); Chloride 104 mmol/L (98-107); Estimated Glomerular Filt Rate 67 ml/min (>60); GFR (African American) 81 ML/MIN (>60); Globulin 3.4 g/dL (1.3-3.2); Glucose 131 mg/dl (74-100); Potassium 4.7 mmoL/L (3.5-5.1); Sodium 141 mmol/L (136-145); Total Protein,Serum 8.1 g/dl (6.3-8.2)
[2020-10-14 15:11] LABS: Erythrocyte Sedimentation Rate 9 mm/hr (0-15)
[2020-10-14 15:13] LABS: C-Reactive Protein 2.7 mg/L (0-4)
== END ==
PROVIDERS: PCP Nurse Practitioner Family; Visit Provider Nurse Practitioner
DX: Z51.89 Encounter for other specified aftercare; E11.8 Type 2 diabetes mellitus with unspecified complications; M79.672 Pain in left foot; M79.671 Pain in right foot; Z79.84 Long term (current) use of oral hypoglycemic drugs
CPT/HCPCS: 36415; 73630; 80053; 83036; 85025; 85651; 86140; 87070; 87077; 87186; 87205

== ENCOUNTER → 2020-12-15 17:20 | Outpatient (CLI) | payer MEDICARE, MEDICAID, SELFPAY | PROVIDERS: Visit Provider Podiatrist | DX: E11.621 Type 2 diabetes mellitus with foot ulcer (principal); L97.511 Non-pressure chronic ulcer of other part of right foot limited to breakdown of skin; Z79.84 Long term (current) use of oral hypoglycemic drugs | CPT/HCPCS: 87070; 87077; 87186; 87205 ==

== ENCOUNTER 2020-12-28 10:00 | Outpatient (RCR) | payer MEDICARE, MEDICAID, SELFPAY ==
--- NOTE | 2020-12-21 10:50 | HMH.PTOPWND ---
Rehab Outpt Wound Evaluation Rehab OP Wound Evaluation Start: 12/21/20 09:52 Freq: Status: Active Protocol: Document 12/21/20 10:41 FLORES (Rec: 12/21/20 10:47 FLORES [id number]) Electronically Signed By Payam Dia, PT 12/21/20 10:41 Subjective/History History History Pt is 40 yowm who presents with R great toe wound x ~ 2-3 mos with after blister from poor fitting shoes. 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 He states, I didn 't even know anything was wrong until I pulled my sock off at night. He had cultures positive for MSSA and has been prescribed topical antibiotic ointment. Subjective Subjective He has no c/o pain at this time, Neuropathy in B feet to ankle proximally. Wound Eval Wound Right Great Toe Wound Type Diabetic Foot Ulcer Is This a Chronic Wound Yes Wound Length (cm) 1.6 Wound Width (cm) 1.6 Wound Bed Appearance Beefy Red,Yellow,Pale Percentage Granulated (%) 80 Percentage of Slough (%) 20 Wound Margins Description Macerated Surrounding Tissue Appearance Macerated Drainage Description Serosanguineous Drainage Amount Moderate Primary Dressing Silver Dressing Comment opticell Ag Wound Secondary Dressing Type Composite Comment optifoam gentle border lite. Wound Debridement Method Sharps,Forceps,Gauze Wound Debridement Amount of Tissue Minimal Removed Wound Debridement Result Healthy Tissue Revealed Dressing Change Patient Tolerance Tolerated Well Wound Problems/Impairments Impairments Problems/Impairmments Impaired Walking,Impaired Recreational Activities,Wound Care Needs,Subjective C/O Pain ,Impaired Self Care/Self Management Prognosis Rehab Potential Good Clinical Impression Consistent with Diagnosis Yes Short Term Goals Number of Weeks 4 Decrease Wound Area Yes: by 25% Decrease Drainage Yes: by 50% [employer] F[employer] And Wellness Director Goals Number of Weeks 8 Return to Recreational Activities Yes Decrease Wound Area Yes: by 100% Decrease Drainage Yes: by 100% Patient to be Ind w/ HEP Yes
== END 2020-12-28 10:05 | disposition home or self-care (01) ==
LOC: PT 10:00
PROVIDERS: PCP Nurse Practitioner Family; Visit Provider Podiatrist
DX: E11.621 Type 2 diabetes mellitus with foot ulcer (principal); L97.511 Non-pressure chronic ulcer of other part of right foot limited to breakdown of skin
CPT/HCPCS: 97162; 97597

== ENCOUNTER → 2021-01-06 08:43 | Outpatient (CLI) | payer MEDICARE, MEDICAID, SELFPAY ==
--- NOTE | 2021-01-06 08:51 | XR_ITS ---
PROCEDURE: XR SHOULDER RT MIN 2V CLINICAL INDICATION: right shoudler pain COMPARISON: CR SHOULDCMLT XR shoulder LT min 2V from 01/10/2018 FINDINGS: No fracture or dislocation. No lytic or blastic change. There is normal mineralization. The joint spaces are well-preserved. No significant degenerative/arthritic changes. No erosive changes evident. Other findings:None. IMPRESSION: No acute findings. Dictated by: Froy Markham MD 01/06/2021 13:01 Froy Markham MD in [place] 01/06/2021 13:01
== END ==
PROVIDERS: PCP Nurse Practitioner Family; Visit Provider Orthopaedic Surgery
DX: M25.511 Pain in right shoulder (principal)
CPT/HCPCS: 73030

== ENCOUNTER 2021-01-07 11:46 | Day surgery (SDC) | payer MEDICARE, MEDICAID, SELFPAY ==
[2021-01-07] VITALS (9 sets, daily range): BP systolic 133–157; BP diastolic 64–92; PULSE 66–93; RESP 16–18; TEMP 36.2–37.2; O2SAT 95–100; BMI 27.3
[2021-01-07 12:25] LABS: Basophils % 0.5 % (0.1-2.0); Eosinophils # 0.2 K/mm3 (0.0-0.4); Hematocrit 43.5 % (42.0-52.0); Hemoglobin 14.1 g/dL (14.1-18.0); Lymphocytes # 1.6 K/mm3 (0.7-4.5); Lymphocytes % 19.8 % (10-50); Mean Corpuscular HGB Conc 32.5 g/dL (31.8-35.4); Mean Corpuscular Hemoglobin 29.5 pg (27.0-31.2); Mean Corpuscular Volume 90.7 fl (80-94); Mean Platelet Volume 7.3 fl (7.4-10.4); Monocytes # 0.7 K/mm3 (0.1-1.0); Monocytes % 8.2 % (1.7-9.3); Neutrophils # 5.5 K/mm3 (1.8-7.8); Neutrophils % 69.5 % (37.0-80.0); Platelet Count 297 K/mm3 (142-424); Red Blood Count 4.79 M/mm3 (4.60-6.20); Red Cell Distribution Width 14.1 % (11.5-17.5); White Blood Count 7.9 K/mm3 (4.8-10.8)
--- NOTE | 2021-01-07 12:28 | ECG_ITS ---
APPROVED REPORT Exam: Resting ECG HR:76 bpm ECG Measurements Heart Rate 76 AXES GA 150 P 42 QRSd 78 QRS 101 QT 350 T 31 QTc 393 Conclusion Sinus rhythm with premature atrial complexes Rightward axis Borderline ECG Electronically signed by : Anshul Hernandez, 01/08/2021 11:41:37
[2021-01-07 12:31] LABS: Chloride 107 mmol/L (98-107); Potassium 4.7 mmoL/L (3.5-5.1); Sodium 145 mmol/L (136-145)
--- NOTE | 2021-01-07 12:33 | XR_ITS ---
PROCEDURE: XR FOOT WT BEARING RT 3V CLINICAL INDICATION: great toe ulcer COMPARISON: CR XR FOOT WT BEARING LT 3V from 05/05/2020 CR XR FOOT RT MIN 3V from 05/19/2020 CR XR FOOT WT BEARING LT 3V from 10/14/2020 CR XR FOOT WT BEARING RT 3V from 10/14/2020 FINDINGS: Hallux valgus. Hammertoe deformity the 2nd and 3rd toes. Soft tissue swelling is present involving the great toe. No bony destructive process evident. Lucency along the medial aspect of the distal aspect of the great toe which may be due to ulceration. No change fragmentation of the distal aspect of the 2nd metatarsal which may be due to Freiberg's infarction. IMPRESSION: Soft tissue swelling at the great toe with hallux valgus. No change cortical fragmentation of the distal aspect of the 2nd metatarsal Dictated by: Froy Markham MD 01/07/2021 17:09 Froy Markham MD in [place] 01/07/2021 17:09
[2021-01-07 12:34] LABS: Alanine Aminotransferase 15 U/L (12-78); Albumin Level 4.5 g/dl (3.5-5.0); Albumin/Globulin Ratio 1.2 (1.1-1.8); Alkaline Phosphatase 67 U/L (38-126); Anion Gap 14.7 mEq/L (5-15); Aspartate Amino Transferase 24 U/L (17-59); Bilirubin,Total 0.6 mg/dl (0.2-1.3); Blood Urea Nitrogen 19 mg/dl (9-20); Calcium 9.9 mg/dl (8.4-10.2); Carbon Dioxide 28 mmol/L (22.0-30.0); Estimated Glomerular Filt Rate 52 ml/min (>60); GFR (African American) 62 ML/MIN (>60); Globulin 3.9 g/dL (1.3-3.2); Glucose 140 mg/dl (74-100); Total Protein,Serum 8.4 g/dl (6.3-8.2)
[2021-01-07 12:39] LABS: C-Reactive Protein 44.5 mg/L (0-4)
[2021-01-07 12:51] LABS: Erythrocyte Sedimentation Rate 18 mm/hr (0-15)
[2021-01-07 13:11] LABS: Hemoglobin A1C 8.4 % (4.0-6.0)
[2021-01-07 14:06] LABS: Coronavirus 19 IgG Antibody Negative (Negative); Coronavirus 19 IgM Antibody Negative (Negative)
--- NOTE | 2021-01-07 16:32 | HMH.ANESI ---
[facility] Anesthesia Record Part I Intake, IV Amount: 900 Estimated blood loss (mL): 10 Urine output (mL): 0 Blood Pressure: 141/73 SaO2: 99 Pulse Rate: 93 Respiratory Rate: 18 Temperature: 98.9 F Patient is:: Drowsy Stable to PACU at:: 16:34
--- NOTE | 2021-01-07 16:33 | P.PN_ITS ---
[facility] Anesthesia Checklist - Patient Identification Patient Identification: Arm Band - Structural Data Admitted From: Home Planned Operative Procedure/s: Toe amputation Consent for Planned Operative Procedure(s) Verified: Yes - Additional verifications Anesthesia Reactions: No Hx Blood Transfusions: No Blood Transfusion Reaction: No - Airway Assessment C-Spine Mobility Assessed: Yes TMJ Mobility Assessed: Yes Dentition: Edentulous - Neurological Assessment Level of Consciousness: Awake - Anesthesia Plan Anesthesia Risk discussed: Yes Anesthesia Plan: Verified ASA Class: II Anesthesia Type: General [facility] History I have reviewed the patient's past medical history: Yes Medical History: Reports:: Diabetes Mellitus Type 2, Hyperlipidemia, Hypertension Denies:: Cancer, Diabetes Mellitus Type 1, Internal Pacemaker, MRSA, Seizures *Have you ever received a pneumonia vaccine?: No *Have you received a flu vaccine this season?: No Other Medical History: Reports: Other. Denies: Blood Transfusion Reaction Anesthesia experience/problems:: None Laterality Cases: Left: Other Other Surgeries: Yes: No Previous Surgery. No: Pacemaker Amputation: No Fractures: Yes (left foot) - *Social History Smoking Status: Heavy tobacco smoker Tobacco Type: smokeless tobacco # Packs/Day (cigarettes): 1 Alcohol Intake: never Substance Use Type: denies use *Occupational Status:: disabled Housing: house Household Members: other *Travel in the last 8 weeks: None Family Hx:: Diabetes, Hypertension, Cancer
--- NOTE | 2021-01-07 16:33 | HMH.OPNOTE ---
Date of procedure: 01/07/21 Pre-op Diagnosis:: 1. Right hallux osteomyelitis 2. Right foot cellulitis 3. Right diabetic foot infection 4. Right sub 4th metatarsal ulcer Post-op Diagnosis:: Same Procedure performed:: 1. Right hallux amputation 2. Right foot irrigation and debridement 3. Right sub 4th metatarsal ulcer excision and delayed primary closure Surgeon:: Brianda Barbosa DPM [employer]:: Other (Sharona Golden) Anesthesia: GETA, local (0.5% marcaine plain) Estimated blood loss (mL): 20 Clinical Note:: Patient is a 40-year-old diabetic male who presented to the clinic this morning with worsening right foot cellulitis and ulcer of the great toe that probes to the bone with purulence noted. X-rays 3 views right foot taken 01/07/2021. Images evaluated by myself. There is no obvious gas noted. There is ulceration noted to the right hallux. We discussed conservative versus surgical treatment options. Conservative treatment options include local wound care, oral and IV antibiotics, change in shoe wear, taping/padding, and off-loading. Discussed that patient would benefit from a wider and deeper shoe wear to accommodate the deformity. We need DM shoes. We discussed surgical intervention for amputation of the right great toe. Patient understands that there is a chance that the [toes can migrate to fill the gap or the foot may change shape after surgery. Patient also understands that they could have wound healing complications including delayed healing and infection. We discussed that if the wound does not heal, it is possible that they may need a more proximal amputation and could result in further loss of digits, loss of partial foot or loss of leg. We discussed the risks and benefits in great detail. Other surgical risks include: prolonged pain and swelling, further infection requiring oral or IV antibiotics, delay in healing of soft tissue or bone, nerve or blood vessel damage, CRPS/RSD, DVT, anesthesia complications, and even . All questions answered. Patient verbalized understanding. Consent obtained. Pre-op labs: ESR, CRP, Ha1c, CBC, CMP, EKG, covid. Patient does have a POA, his sister Yadira Jernigan, ([phone]). I did call and discussed the plan of care with the sister who has given verbal consent to proceed with surgery. She states the patient is not to have any pain medication that after his last surgery he had NSAIDs. e-Rx Doxycycline 100mg BID x 14 days (01/08-01/22/21), Zofran, Ibuprofen 800mg for pain. Operative findings:: Right medial plantar hallux with ulcer noted, measuring 1.5 x 1.2 x 0.6cm. Tracking, probes to bone. Purulence noted from plantar ulcer. There was increase edema and erythema with ascending cellulitis noted. The right sub 4th metatarsal ulcer was 0.5 x 0.3 x 0.2cm; 100% granular. Post hallux amputation there was no tracking up the tendons. The infection seemed to be localized to the toe. First metatarsal head intact with no obvious signs of osteomyelitis. Operative note:: On this date and time patient was deemed an appropriate surgical candidate. With informed consent signed, the patient was taken to the operating theater. The patient was positioned supine. General anesthesia was induced. No tourniquet used. Pre-op right hallux and ankle blocks given with 30 cc 0.5% marcaine plain. IV vancomycin given after cultures. Right hallux amputation, irrigation and debridement, ulcer excision: The right lower extremity was prepped and drapped in normal sterile fashion. Cellulitis noted around the ulcer. A fish mouth incision was mapped out. Utilizing a 15 blade dissection was carried down sharply to the level of the bone around the distal phalanx which was disarticulated from the proximal phalanx. The ulcer was removed in total and sent for gross path with a portion of the distal phalanx. All nonviable soft tissue was debrided. The distal phalanx bone was soft and crumbly and had a mild malodor to it. Portion of it was cut and sent for bone culture a
--- NOTE | 2021-01-07 16:36 | XR_ITS ---
PROCEDURE: XR FOOT RT MIN 3V CLINICAL INDICATION: toe amp nwb Follow-up toe amputation COMPARISON: CR XR FOOT RT MIN 3V from 05/19/2020 CR XR FOOT WT BEARING LT 3V from 10/14/2020 CR XR FOOT WT BEARING RT 3V from 10/14/2020 CR XR FOOT WT BEARING RT 3V from 01/07/2021 FINDINGS: Status post amputation at the 1st metatarsophalangeal joint. No bony destructive process at the distal 1st metatarsal. There is cortical regularity of the head of the 2nd metatarsal suggesting Freiberg's infarction. No other significant anomalies are evident. Other findings:None. IMPRESSION: Status post amputation at the 1st MTP joint. No change fragmentation head of the 2nd metatarsal Dictated by: Froy Markham MD 01/07/2021 16:57 Froy Markham MD in OV 01/07/2021 16:57
[2021-01-07 16:49] LABS: POC Glucose,Bedside 95 (70-110)
[2021-01-08 11:30] LABS: POC Glucose,Bedside 114 (70-110)
--- NOTE | 2021-01-08 15:34 | P.PN_ITS ---
[facility] Anesthesia Record Part II Discharge Time: 16:51 Destination: Surgical Day Care (OP Surgery) PACU nurse assessment reviewed?: Yes Patient Condition:: Good Anesthesia Complications:: None Swallowing reflex intact?: Yes Cyanosis?: No Blood Pressure: 133/76 Pulse Rate: 81 Temperature: 98.4 F Mental Status: Alert & Oriented Pain level:: 0 Nausea and/or vomitting:: None Intake, IV Amount: 0
[2021-01-08 15:35] VITALS: BP 133/76; PULSE 81; TEMP 36.9
== END 2021-01-07 17:23 | disposition home or self-care (01) ==
LOC: OR 11:47
PROVIDERS: PCP Nurse Practitioner Family; Visit Provider Podiatrist
PROC: (CPT 11042; principal; 2021-01-07 15:00)
DX: E11.69 Type 2 diabetes mellitus with other specified complication (principal); M86.171 Other acute osteomyelitis, right ankle and foot; E11.621 Type 2 diabetes mellitus with foot ulcer; L97.511 Non-pressure chronic ulcer of other part of right foot limited to breakdown of skin; Z79.84 Long term (current) use of oral hypoglycemic drugs; Z79.899 Other long term (current) drug therapy; B95.61 Methicillin susceptible Staphylococcus aureus infection as the cause of diseases classified elsewhere; L03.115 Cellulitis of right lower limb; M79.671 Pain in right foot
CPT/HCPCS: 11042; 28820; 36415; 73630; 80053; 82962; 83036; 85025; 85651; 86140; 86328; 87070; 87075; 87077; 87186; 87205; 88305; 88311; 93005; 96372; 96374; J3370

== ENCOUNTER → 2021-01-07 17:16 | Outpatient (CLI) | payer MEDICARE, MEDICAID, SELFPAY | PROVIDERS: Visit Provider Podiatrist | DX: Z51.89 Encounter for other specified aftercare; M86.9 Osteomyelitis, unspecified | CPT/HCPCS: 87070; 87077; 87186; 87205 ==

== ENCOUNTER → 2021-01-27 11:59 | Outpatient (CLI) | payer MEDICARE, MEDICAID, SELFPAY ==
[2021-01-27 12:19] LABS: Basophils # 0.1 K/mm3 (0-0.2); Basophils % 0.6 % (0.1-2.0); Eosinophils # 0.2 K/mm3 (0.0-0.4); Eosinophils % 2.7 % (0.1-12.0); Hematocrit 46.8 % (42.0-52.0); Hemoglobin 14.8 g/dL (14.1-18.0); Lymphocytes # 1.4 K/mm3 (0.7-4.5); Lymphocytes % 16.8 % (10-50); Mean Corpuscular HGB Conc 31.6 g/dL (31.8-35.4); Mean Corpuscular Hemoglobin 29.7 pg (27.0-31.2); Mean Corpuscular Volume 93.9 fl (80-94); Mean Platelet Volume 7.9 fl (7.4-10.4); Monocytes # 0.5 K/mm3 (0.1-1.0); Monocytes % 5.8 % (1.7-9.3); Neutrophils % 74.1 % (37.0-80.0); Platelet Count 270 K/mm3 (142-424); Red Blood Count 4.99 M/mm3 (4.60-6.20); Red Cell Distribution Width 14.5 % (11.5-17.5); White Blood Count 8.1 K/mm3 (4.8-10.8)
[2021-01-27 12:53] LABS: Alanine Aminotransferase 19 U/L (12-78); Albumin Level 4.6 g/dl (3.5-5.0); Albumin/Globulin Ratio 1.6 (1.1-1.8); Alkaline Phosphatase 55 U/L (38-126); Anion Gap 15.3 mEq/L (5-15); Aspartate Amino Transferase 23 U/L (17-59); Bilirubin,Total 0.4 mg/dl (0.2-1.3); Blood Urea Nitrogen 18 mg/dl (9-20); Calcium 10.6 mg/dl (8.4-10.2); Carbon Dioxide 29 mmol/L (22.0-30.0); Chloride 104 mmol/L (98-107); Estimated Glomerular Filt Rate 67 ml/min (>60); GFR (African American) 81 ML/MIN (>60); Globulin 2.9 g/dL (1.3-3.2); Glucose 218 mg/dl (74-100); Potassium 5.3 mmoL/L (3.5-5.1); Sodium 143 mmol/L (136-145); Total Protein,Serum 7.5 g/dl (6.3-8.2)
[2021-01-27 13:22] LABS: C-Reactive Protein < 0.3 mg/L (0-4)
[2021-01-27 13:42] LABS: Erythrocyte Sedimentation Rate 5 mm/hr (0-15)
== END ==
PROVIDERS: Visit Provider Podiatrist
DX: Z98.890 Other specified postprocedural states (principal); S90.31XA Contusion of right foot, initial encounter
CPT/HCPCS: 36415; 80053; 85025; 85651; 86140

== ENCOUNTER → 2021-04-16 15:26 | Outpatient (CLI) | payer MEDICARE, MEDICAID, SELFPAY ==
[2021-04-16 15:46] LABS: Basophils % 0.7 % (0.1-2.0); Eosinophils # 0.2 K/mm3 (0.0-0.4); Eosinophils % 3.3 % (0.1-12.0); Hematocrit 39.3 % (42.0-52.0); Hemoglobin 13.5 g/dL (14.1-18.0); Lymphocytes # 1.7 K/mm3 (0.7-4.5); Lymphocytes % 26.7 % (10-50); Mean Corpuscular HGB Conc 34.4 g/dL (31.8-35.4); Mean Corpuscular Hemoglobin 30.2 pg (27.0-31.2); Mean Corpuscular Volume 87.8 fl (80-94); Mean Platelet Volume 7.7 fl (7.4-10.4); Monocytes # 0.4 K/mm3 (0.1-1.0); Monocytes % 6.3 % (1.7-9.3); Platelet Count 239 K/mm3 (142-424); Red Blood Count 4.48 M/mm3 (4.60-6.20); Red Cell Distribution Width 13.5 % (11.5-17.5); White Blood Count 6.3 K/mm3 (4.8-10.8)
[2021-04-16 16:11] LABS: Alanine Aminotransferase 23 U/L (12-78); Albumin Level 4.6 g/dl (3.5-5.0); Albumin/Globulin Ratio 1.6 (1.1-1.8); Alkaline Phosphatase 52 U/L (38-126); Anion Gap 17.8 mEq/L (5-15); Aspartate Amino Transferase 29 U/L (17-59); Bilirubin,Total 0.6 mg/dl (0.2-1.3); Blood Urea Nitrogen 21 mg/dl (9-20); Calcium 9.5 mg/dl (8.4-10.2); Carbon Dioxide 24 mmol/L (22.0-30.0); Chloride 107 mmol/L (98-107); Estimated Glomerular Filt Rate 48 ml/min (>60); GFR (African American) 58 ML/MIN (>60); Globulin 2.8 g/dL (1.3-3.2); Glucose 109 mg/dl (74-100); Potassium 4.8 mmoL/L (3.5-5.1); Sodium 144 mmol/L (136-145); Total Protein,Serum 7.4 g/dl (6.3-8.2)
[2021-04-16 16:40] LABS: Erythrocyte Sedimentation Rate 25 mm/hr (0-15)
== END ==
PROVIDERS: Visit Provider Nurse Practitioner
DX: L97.512 Non-pressure chronic ulcer of other part of right foot with fat layer exposed; Z51.89 Encounter for other specified aftercare; E11.621 Type 2 diabetes mellitus with foot ulcer; Z79.84 Long term (current) use of oral hypoglycemic drugs
CPT/HCPCS: 36415; 80053; 85025; 85651; 86140

== ENCOUNTER → 2021-05-19 18:31 | Outpatient (CLI) | payer MEDICARE, MEDICAID, SELFPAY | PROVIDERS: Visit Provider Nurse Practitioner Family | DX: Z20.822 Contact with and (suspected) exposure to COVID-19 (principal); U07.1 COVID-19 | CPT/HCPCS: U0003 ==

== ENCOUNTER → 2021-06-21 09:48 | Outpatient (CLI) | payer MEDICARE, MEDICAID, SELFPAY ==
[2021-06-21 11:06] LABS: Hemoglobin A1C 7.8 % (4.0-6.0)
[2021-06-21 11:18] LABS: Chloride 104 mmol/L (98-107); Sodium 142 mmol/L (136-145)
[2021-06-21 11:19] LABS: Potassium 5.3 mmoL/L (3.5-5.1)
[2021-06-21 11:21] LABS: Alanine Aminotransferase 18 U/L (12-78); Alkaline Phosphatase 38 U/L (38-126); Aspartate Amino Transferase 41 U/L (17-59); Bilirubin,Total 0.8 mg/dl (0.2-1.3); Blood Urea Nitrogen 22 mg/dl (9-20); Estimated Glomerular Filt Rate 74 ml/min (>60); GFR (African American) 89 ML/MIN (>60)
[2021-06-21 11:22] LABS: Albumin Level 4.5 g/dl (3.5-5.0); Albumin/Globulin Ratio 1.6 (1.1-1.8); Anion Gap 17.3 mEq/L (5-15); Calcium 9.3 mg/dl (8.4-10.2); Carbon Dioxide 26 mmol/L (22.0-30.0); Globulin 2.9 g/dL (1.3-3.2); Glucose 140 mg/dl (74-100); Total Protein,Serum 7.4 g/dl (6.3-8.2)
[2021-06-21 11:27] LABS: C-Reactive Protein 0.6 mg/L (0-4)
== END ==
PROVIDERS: Visit Provider Podiatrist Foot & Ankle Surgery
DX: E11.40 Type 2 diabetes mellitus with diabetic neuropathy, unspecified (principal); M20.41 Other hammer toe(s) (acquired), right foot; Z79.84 Long term (current) use of oral hypoglycemic drugs
CPT/HCPCS: 36415; 80053; 83036; 86140

== ENCOUNTER → 2021-07-02 16:25 | Outpatient (CLI) | payer MEDICARE, MEDICAID, SELFPAY ==
[2021-07-02 18:37] LABS: Basophils # 0.1 K/mm3 (0-0.2); Basophils % 0.9 % (0.1-2.0); Eosinophils # 0.2 K/mm3 (0.0-0.4); Eosinophils % 3.7 % (0.1-12.0); Hematocrit 48.4 % (42.0-52.0); Hemoglobin 15.4 g/dL (14.1-18.0); Lymphocytes # 1.3 K/mm3 (0.7-4.5); Lymphocytes % 25.4 % (10-50); Mean Corpuscular HGB Conc 31.8 g/dL (31.8-35.4); Mean Corpuscular Hemoglobin 30.6 pg (27.0-31.2); Mean Corpuscular Volume 96.3 fl (80-94); Monocytes # 0.3 K/mm3 (0.1-1.0); Monocytes % 5.6 % (1.7-9.3); Neutrophils # 3.4 K/mm3 (1.8-7.8); Neutrophils % 64.3 % (37.0-80.0); Platelet Count 270 K/mm3 (142-424); Red Blood Count 5.02 M/mm3 (4.60-6.20); Red Cell Distribution Width 14.2 % (11.5-17.5); White Blood Count 5.2 K/mm3 (4.8-10.8)
== END ==
PROVIDERS: Visit Provider Nurse Practitioner Family
DX: S90.30XA Contusion of unspecified foot, initial encounter (principal); Z01.818 Encounter for other preprocedural examination
CPT/HCPCS: 85025

== ENCOUNTER → 2021-12-13 08:59 | Outpatient (CLI) | payer MEDICARE, MEDICAID, SELFPAY ==
[2021-12-13 09:43] LABS: Basophils % 0.5 % (0.1-2.0); Eosinophils # 0.1 K/mm3 (0.0-0.4); Eosinophils % 1.6 % (0.1-12.0); Hematocrit 47.6 % (42.0-52.0); Hemoglobin 15.9 g/dL (14.1-18.0); Lymphocytes # 1.6 K/mm3 (0.7-4.5); Lymphocytes % 21.1 % (10-50); Mean Corpuscular HGB Conc 33.3 g/dL (31.8-35.4); Mean Corpuscular Hemoglobin 30.6 pg (27.0-31.2); Mean Corpuscular Volume 91.8 fl (80-94); Mean Platelet Volume 7.8 fl (7.4-10.4); Monocytes # 0.5 K/mm3 (0.1-1.0); Monocytes % 6.1 % (1.7-9.3); Neutrophils # 5.5 K/mm3 (1.8-7.8); Neutrophils % 70.7 % (37.0-80.0); Platelet Count 260 K/mm3 (142-424); Red Blood Count 5.19 M/mm3 (4.60-6.20); Red Cell Distribution Width 13.7 % (11.5-17.5); White Blood Count 7.8 K/mm3 (4.8-10.8)
[2021-12-13 10:02] LABS: Chloride 101 mmol/L (98-107); Potassium 5.4 mmoL/L (3.5-5.1); Sodium 137 mmol/L (136-145)
[2021-12-13 10:04] LABS: Blood Urea Nitrogen 24 mg/dl (9-20); Estimated Glomerular Filt Rate 66 ml/min (>60); GFR (African American) 80 ML/MIN (>60)
[2021-12-13 10:05] LABS: Alanine Aminotransferase 26 U/L (12-78); Albumin Level 4.9 g/dl (3.5-5.0); Albumin/Globulin Ratio 1.7 (1.1-1.8); Alkaline Phosphatase 82 U/L (38-126); Anion Gap 12.4 mEq/L (5-15); Aspartate Amino Transferase 34 U/L (17-59); Bilirubin,Total 0.9 mg/dl (0.2-1.3); Calcium 9.6 mg/dl (8.4-10.2); Carbon Dioxide 29 mmol/L (22.0-30.0); Chol/HDL Ratio 2.3 (1-3.5); Cholesterol 97 mg/dl (140-200); Globulin 2.9 g/dL (1.3-3.2); Glucose 222 mg/dl (74-100); HDL Cholesterol 42 mg/dl (40-60); Total Protein,Serum 7.8 g/dl (6.3-8.2); Triglycerides 119 mg/dl (30-150); VLDL Cholesterol 24 mg/dL (0-40)
[2021-12-13 10:16] LABS: Direct LDL Cholesterol 37.55 mg/dL (100-129)
[2021-12-13 10:22] LABS: T4 (Thyroxine) 8.3 ug/dl (5.53-11.0)
[2021-12-13 10:36] LABS: Thyroid Stimulating Hormone 1.33 uIU/mL (0.465-4.68)
== END ==
PROVIDERS: Visit Provider Nurse Practitioner Family
DX: E66.3 Overweight; S90.30XA Contusion of unspecified foot, initial encounter; E08.621 Diabetes mellitus due to underlying condition with foot ulcer; L97.512 Non-pressure chronic ulcer of other part of right foot with fat layer exposed; Z79.84 Long term (current) use of oral hypoglycemic drugs
CPT/HCPCS: 36415; 80053; 80061; 83036; 84436; 84443; 85025

== ENCOUNTER → 2022-01-28 16:03 | Outpatient (CLI) | payer MEDICARE, MEDICAID, SELFPAY ==
--- NOTE | 2022-01-28 16:06 | XR_ITS ---
FINAL REPORT CLINICAL HISTORY: shoulder pain FINDINGS: RIGHT SHOULDER Three views demonstrate no acute fracture or dislocation. There is irregularity of the distal clavicle which may relate to chronic fracture. The visualized joint spaces are normally aligned. The soft tissues are unremarkable. IMPRESSION: No acute process. Reviewed, Interpreted and Dictated by Cole Hewitt III, MD Transcribed by Yvonne De Dios Authenticated by Cole Hewitt III, MD on 01/28/2022 04:43:00 PM [facility]
== END ==
PROVIDERS: PCP Nurse Practitioner Family; Visit Provider Nurse Practitioner Family
DX: M25.511 Pain in right shoulder (principal)
CPT/HCPCS: 73030

== ENCOUNTER 2022-09-26 22:01 | Emergency (ER) | payer MEDICARE, MEDICAID, SELFPAY ==
[2022-09-26 22:02] VITALS: BP 148/87; PULSE 107; RESP 18; TEMP 37.1; O2SAT 98; BMI 26.6
--- NOTE | 2022-09-26 22:40 | XR_ITS ---
PROCEDURE INFORMATION: Exam: XR Chest Exam date and time: 09/26/2022 10:38 PM Age: 41 years old Clinical indication: Shortness of breath; Additional info: SOA TECHNIQUE: Imaging protocol: Radiologic exam of the chest. Views: 2 views. COMPARISON: CR XR SHOULDER RT MIN 2V 01/28/2022 4:08 PM FINDINGS: Lungs: Tiny calcified granulomas in the left lung base. Pleural spaces: Unremarkable. No pleural effusion. No pneumothorax. Heart/Mediastinum: Unremarkable. No cardiomegaly. Bones/joints: Rotoscoliosis of the spine. IMPRESSION: No evidence of acute cardiopulmonary process.
--- NOTE | 2022-09-26 23:07 | ECG_ITS ---
APPROVED REPORT Exam: Resting ECG HR:103 bpm ECG Measurements Heart Rate 103 AXES IL 165 P 57 QRSd 90 QRS 82 QT 308 T 56 QTc 367 Conclusion SINUS TACHYCARDIA ABNORMAL RHYTHM ECG UNCONFIRMED REPORT Electronically signed by : Anshul Hernandez MD 09/27/2022 20:57:21
[2022-09-26 23:13] LABS: Basophils # 0.1 K/mm3 (0-0.2); Basophils % 0.6 % (0.1-2.0); Eosinophils # 0.1 K/mm3 (0.0-0.4); Hematocrit 46.3 % (42.0-52.0); Hemoglobin 14.6 g/dL (14.1-18.0); Mean Corpuscular HGB Conc 31.6 g/dL (31.8-35.4); Mean Corpuscular Hemoglobin 30.4 pg (27.0-31.2); Mean Corpuscular Volume 96.3 fl (80-94); Mean Platelet Volume 8.9 fl (7.4-10.4); Monocytes # 0.4 K/mm3 (0.1-1.0); Monocytes % 3.6 % (1.7-9.3); Neutrophils # 8.3 K/mm3 (1.8-7.8); Neutrophils % 84.9 % (37.0-80.0); Platelet Count 253 K/mm3 (142-424); Red Blood Count 4.81 M/mm3 (4.60-6.20); Red Cell Distribution Width 13.4 % (11.5-17.5); White Blood Count 9.8 K/mm3 (4.8-10.8)
[2022-09-26 23:28] LABS: Coronavirus 19, PCR Not Detected (NotDetected); Influenza A, PCR Not Detected (NotDetected); Influenza B, PCR Not Detected (NotDetected)
--- NOTE | 2022-09-27 | CT_ITS ---
PROCEDURE INFORMATION: Exam: CTA Chest With Contrast Exam date and time: 09/27/2022 12:51 AM Age: 41 years old Clinical indication: Shortness of breath; Additional info: SOA TECHNIQUE: Imaging protocol: Computed tomographic angiography of the chest with contrast. 3D rendering (Not supervised by radiologist): MIP and/or 3D reconstructed images were created by the technologist. Radiation optimization: All CT scans at this facility use at least one of these dose optimization techniques: automated exposure control; mA and/or kV adjustment per patient size (includes targeted exams where dose is matched to clinical indication); or iterative reconstruction. Contrast material: ISOVUE; Contrast volume: 70 ml; Contrast route: INTRAVENOUS (IV); COMPARISON: CR XR CHEST 2V 09/26/2022 10:38 PM FINDINGS: Pulmonary arteries: Normal. No pulmonary emboli. Aorta: Unremarkable. No aortic aneurysm. No aortic dissection. Lungs: There are subcentimeter calcified granulomas in the left upper lobe. Pleural spaces: Unremarkable. No pneumothorax. No pleural effusion. Heart: Unremarkable. No cardiomegaly. No pericardial effusion. Lymph nodes: Unremarkable. No enlarged lymph nodes. Liver: Large geographical area of hypoattenuation in the right lobe of the liver is probably focal fatty infiltration with underlying neoplasm to be excluded. Further follow-up is recommended. Spleen: Spleen is heterogenous due to early arterial injection. Multiple calcified punctate splenic granulomas. Bones/joints: Unremarkable. No acute fracture. Soft tissues: Unremarkable. IMPRESSION: 1. No evidence for pulmonary embolism or aortic dissection. 2. No evidence of acute cardiopulmonary process. 3. Large geographical area of hypoattenuation in the right lobe of the liver is probably focal fatty infiltration with underlying neoplasm to be excluded. Further follow-up is recommended.
[2022-09-27 00:31] LABS: Alanine Aminotransferase 123 U/L (12-78); Albumin Level 3.9 g/dl (3.5-5.0); Albumin/Globulin Ratio 1.3 (1.1-1.8); Alkaline Phosphatase 137 U/L (38-126); Anion Gap 4.4 mEq/L (5-15); Aspartate Amino Transferase 148 U/L (17-59); Bilirubin,Total 1.2 mg/dl (0.2-1.3); Blood Urea Nitrogen 41 mg/dl (9-20); Calcium 9.1 mg/dl (8.4-10.2); Carbon Dioxide 21 mmol/L (22.0-30.0); Chloride 97 mmol/L (98-107); Creatinine Clearance Estimated 69 mL/min (50-200); Estimated Glomerular Filt Rate 48 ml/min (>60); GFR (African American) 58 ML/MIN (>60); Globulin 2.9 g/dL (1.3-3.2); Potassium 4.4 mmoL/L (3.5-5.1); Sodium 118 mmol/L (136-145); Total Protein,Serum 6.8 g/dl (6.3-8.2)
[2022-09-27 00:47] LABS: Troponin I < 0.01 ng/ml (0.00-0.034)
--- NOTE | 2022-09-27 00:54 | HMH.EDSOB ---
Discharge Plan Disposition Patient Disposition: Home, Self-Care Chief Complaint: Shortness of Breath/Dyspnea Prescriptions Prescriptions: No Action ondansetron 4 mg tablet,disintegrating 4 mg PO Q6H PRN (Reason: nausea and vomiting) Qty: 30 2RF diclofenac sodium [Voltaren Arthritis Pain] 1 % gel 2 g TOPICAL TID Qty: 100 2RF Rx Instructions: apply to shoulder (DME) blood-glucose meter Misc 1 each .ROUTE .MEDSUPPLY Qty: 1 Label Comments: USE TO TEST BLOOD GLUCOSE ONCE DAILY AND NEEDED Rx Instructions: As directed ibuprofen 800 mg tablet 800 mg PO BID Qty: 60 3RF fenofibrate 54 mg tablet 54 mg PO DAILY Qty: 90 0RF prednisone 20 mg tablet 20 mg PO BID 5 Days Qty: 10 0RF naproxen 500 mg tablet 500 mg PO BID Qty: 30 0RF atorvastatin 20 mg tablet See Rx Instructions .ROUTE .COMPLEX Qty: 90 3RF Dose Instruction: TAKE 1 TABLET BY MOUTH ONCE DAILY FOR CHOLESTEROL Rx Instructions: TAKE 1 TABLET BY MOUTH ONCE DAILY FOR CHOLESTEROL Vraylar 1.5 mg capsule 1.5 mg PO DAILY Qty: 30 2RF doxepin 100 mg capsule 100 mg PO DAILY Qty: 90 2RF glipizide 10 mg tablet extended release 24hr 10 mg PO BID Qty: 60 3RF sodium polystyrene sulf-sorbtl 15-20 gram/60 mL suspension 60 ml PO ONCE Qty: 60 0RF Rx Instructions: x 1 dose Januvia 100 mg tablet See Rx Instructions .ROUTE .COMPLEX Qty: 90 0RF Dose Instruction: Take 1 tablet by mouth once daily Rx Instructions: Take 1 tablet by mouth once daily Jardiance 10 mg tablet 10 mg PO DAILY Qty: 30 2RF (DME) Accu-Chek Pua Plus test strp Strip See Rx Instructions .ROUTE .COMPLEX Qty: 100 0RF Dose Instruction: USE 1 STRIP TO CHECK GLUCOSE ONCE DAILY Rx Instructions: USE 1 STRIP TO CHECK GLUCOSE ONCE DAILY Referrals Follow up/Referrals: Sarika Benito APRN [Primary Care Provider] - See instructions Clinical Impressions Clinical Impression: Diabetes, Acute dyspnea Instructions Patient Instructions: DI for Shortness of Breath Discharge ED Provider: Rayshawn Millard Resp/SOB HPI General Chief Complaint: Shortness of Breath/Dyspnea Stated Complaint: covid pos 09/19, SOA Time Seen by Provider: 09/27/22 00:54 Mode of Arrival: Ambulatory Source of Information: Patient and Medical Record Limitations: No Limitations Description of Symptoms (Recalled from ER Triage Doc. by RN): pt states positive for covid on 09/19 pt c/o cough, SOA x 2 days History of Present Illness recent covid-19 and now sob MD Complaint: shortness of breath Onset (ago): day(s) Context: recent illness Severity: moderate Consistency/Duration: intermittent Associated symptoms: denies other symptoms Treatment prior to arrival: none Related Data Home oxygen amount: none Home Medications Medication Instructions Recorded Confirmed blood-glucose meter #1 ea 12/04/19 04/13/22 Previous Rx's Medication Instructions Recorded ibuprofen 800 mg tablet 800 mg PO BID pain, mild #60 tabs 01/07/21 ondansetron 4 mg disintegrating 4 mg PO Q6H PRN nausea and 03/25/21 tablet vomiting #30 tabs fenofibrate 54 mg tablet 54 mg PO DAILY Cholesterol #90 tabs 12/06/21 sodium polystyrene sulfonate 15 60 ml PO ONCE #60 mL 12/15/21 gram-sorbitol 20 gram/60 mL oral susp diclofenac sodium 1 % topical gel 2 g topical TID #100 grams 01/28/22 (Voltaren Arthritis Pain) sitagliptin phosphate 100 mg See Rx Instructions .Route 02/06/22 tablet (Januvia) .COMPLEX #90 tabs empagliflozin 10 mg tablet 10 mg PO DAILY #30 tabs 03/02/22 (Jardiance) naproxen 500 mg tablet 500 mg PO BID #30 tabs 04/13/22 prednisone 20 mg tablet 20 mg PO BID 5 days #10 tabs 04/13/22 atorvastatin 20 mg tablet See Rx Instructions .Route 04/14/22 .COMPLEX #90 tabs cariprazine 1.5 mg capsule 1.5 mg PO DAILY #30 caps 04/14/22 (Vraylar) doxepin 100 mg capsule 100 mg PO DAILY . #90 caps 04/14/22 glipizide 10 mg ta
[2022-09-27 00:55] LABS: Glucose 692 mg/dl (74-100)
[2022-09-27 01:49] LABS: POC Glucose,Bedside 409 (70-110)
[2022-09-27 01:50] VITALS: BP 139/78; PULSE 89; RESP 18; TEMP 37.1; O2SAT 98
== END 2022-09-27 01:56 | disposition home or self-care (01) ==
PROVIDERS: Emergency Provider Emergency Medicine; PCP Nurse Practitioner Family
DX: E11.65 Type 2 diabetes mellitus with hyperglycemia (principal); R06.02 Shortness of breath
CPT/HCPCS: 71046; 71275; 80053; 82962; 84484; 85025; 93005; 96365; 96366; 96375; 99285; C9803; Q9967; U0003; U0005

== ENCOUNTER → 2023-01-21 08:51 | Outpatient (CLI) | payer MEDICARE, MEDICAID, SELFPAY ==
--- NOTE | 2023-01-21 09:07 | XR_ITS ---
PROCEDURE INFORMATION: Exam: XR Right Foot Complete; Alignment Exam date and time: 01/21/2023 9:09 AM Age: 42 years old Clinical indication: Cellulitis and edema; Yes, it is localized; Foot; Bilateral; Additional info: Diabetic foot ulcer TECHNIQUE: Imaging protocol: Radiologic exam of the right foot. Views: 3 or more views. COMPARISON: CR XR FOOT RT MIN 3V 01/07/2021 4:45 PM FINDINGS: Bones/joints: Status post amputation at the 1st metatarsal-phalangeal joint. Interval surgical intervention at the 2nd metatarsal head, with significantly worsening cortical irregularity at the 2nd metatarsal-phalangeal joint. Continuing sclerosis within the proximal phalanx 2nd digit. New cortical irregularity within the distal aspect proximal phalanges digits 2 through 5, with increasing proximal interphalangeal joint spaces. Soft tissues: Normal. IMPRESSION: 1. Interval surgical intervention at the 2nd metatarsal head, with significantly worsening cortical irregularity at the 2nd metatarsal-phalangeal joint. Continuing sclerosis within the proximal phalanx 2nd digit. 2. New cortical irregularity within the distal aspect proximal phalanges digits 2 through 5, with increasing proximal interphalangeal joint spaces.
--- NOTE | 2023-01-21 09:07 | XR_ITS ---
PROCEDURE INFORMATION: Exam: XR Left Foot Complete; Alignment Exam date and time: 01/21/2023 9:09 AM Age: 42 years old Clinical indication: Cellulitis; Foot; Bilateral; Additional info: Diabetic foot ulcer TECHNIQUE: Imaging protocol: Radiologic exam of the left foot. Views: 3 or more views. COMPARISON: CR XR FOOT WT BEARING LT 3V 10/14/2020 12:32 PM FINDINGS: Bones/joints: Stable surgical changes at the 3rd metatarsal base. Stable mild metatarsus varus. Hammertoe deformities 2nd and 3rd digits. Osseous fusion at the 2nd proximal interphalangeal joint. No acute fracture or dislocation. Soft tissues: Normal. IMPRESSION: Stable chronic changes as detailed above.
[2023-01-21 10:05] LABS: Basophils # 0.1 K/mm3 (0-0.2); Basophils % 2.3 % (0.1-2.0); Eosinophils # 0.1 K/mm3 (0.0-0.4); Eosinophils % 2.2 % (0.1-12.0); Hematocrit 51.3 % (42.0-52.0); Hemoglobin 15.9 g/dL (14.1-18.0); Lymphocytes # 1.3 K/mm3 (0.7-4.5); Lymphocytes % 27.7 % (10-50); Mean Corpuscular Hemoglobin 29.5 pg (27.0-31.2); Monocytes # 0.3 K/mm3 (0.1-1.0); Neutrophils # 2.9 K/mm3 (1.8-7.8); Neutrophils % 60.8 % (37.0-80.0); Platelet Count 243 K/mm3 (142-424); Red Cell Distribution Width 14.3 % (11.5-17.5); White Blood Count 4.8 K/mm3 (4.8-10.8)
[2023-01-21 10:25] LABS: Chloride 102 mmol/L (98-107); Potassium 4.2 mmoL/L (3.5-5.1); Sodium 141 mmol/L (136-145)
[2023-01-21 10:28] LABS: Alanine Aminotransferase 26 U/L (12-78); Albumin Level 4.5 g/dl (3.5-5.0); Albumin/Globulin Ratio 1.8 (1.1-1.8); Alkaline Phosphatase 76 U/L (38-126); Anion Gap 15.2 mEq/L (5-15); Aspartate Amino Transferase 28 U/L (17-59); Bilirubin,Total 1.1 mg/dl (0.2-1.3); Blood Urea Nitrogen 7 mg/dl (9-20); Calcium 9.4 mg/dl (8.4-10.2); Carbon Dioxide 28 mmol/L (22.0-30.0); Estimated Glomerular Filt Rate 51 ml/min (>60); GFR (African American) 62 ML/MIN (>60); Globulin 2.5 g/dL (1.3-3.2); Glucose 194 mg/dl (74-100)
[2023-01-21 10:35] LABS: C-Reactive Protein 1.7 mg/L (0-4)
[2023-01-21 12:33] LABS: Erythrocyte Sedimentation Rate 18 mm/hr (0-15)
== END ==
PROVIDERS: PCP Nurse Practitioner Family; Visit Provider Nurse Practitioner Family
DX: M25.512 Pain in left shoulder; S91.301A Unspecified open wound, right foot, initial encounter; S91.302A Unspecified open wound, left foot, initial encounter
CPT/HCPCS: 36415; 73630; 80053; 85025; 85651; 86140

== ENCOUNTER → 2023-01-23 10:52 | Outpatient (CLI) | payer MEDICARE, MEDICAID, SELFPAY ==
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
== END ==
PROVIDERS: PCP Nurse Practitioner Family; Visit Provider Nurse Practitioner Family
DX: I70.213 Atherosclerosis of native arteries of extremities with intermittent claudication, bilateral legs (principal)
CPT/HCPCS: 93923

== ENCOUNTER 2023-01-23 12:50 | Outpatient (RCR) | payer MEDICARE, MEDICAID, SELFPAY | END 2023-01-23 13:45 | disposition home or self-care (01) | LOC: PT 12:50 | PROVIDERS: Visit Provider Nurse Practitioner Family | DX: E11.621 Type 2 diabetes mellitus with foot ulcer (principal); L97.519 Non-pressure chronic ulcer of other part of right foot with unspecified severity; Z79.84 Long term (current) use of oral hypoglycemic drugs | CPT/HCPCS: 97760 ==

== ENCOUNTER → 2023-02-02 06:04 | Outpatient (CLI) | payer MEDICARE, MEDICAID, SELFPAY ==
--- NOTE | 2023-02-02 06:05 | CT_ITS ---
FINAL REPORT TECHNIQUE: Thin section axial CT images with coronal and sagittal reformats were performed. 3D imaging was also submitted. This study was performed with techniques to keep radiation doses as low as reasonably achievable (ALARA). Individualized dose reduction techniques using automated exposure control or adjustment of mA and/or kV according to the patient''s size were employed. CLINICAL HISTORY: foot pain FINDINGS: CT RIGHT FOOT WITHOUT CONTRAST There has been amputation of the great toe at the 1st MTP joint. There are postoperative changes of the 2nd MTP with a wire seen in the head of the 2nd metatarsal. There are subchondral cysts versus chronic erosions at the head of the 2nd metatarsal and proximal aspect of the 2nd proximal phalanx. There is irregularity of the distal 2nd through 5th proximal phalanges consistent with postoperative change. There are mild degenerative changes. There are 2nd, 3rd and 4th digit hammertoes. IMPRESSION: Postoperative changes as described. Subchondral cysts versus chronic erosions at the head of the 2nd metatarsal and proximal aspect of the 2nd proximal phalanx. Reviewed, Interpreted and Dictated by Cole Hewitt III, MD Transcribed by Debra Chaney Authenticated and [facility]
== END ==
PROVIDERS: PCP Nurse Practitioner Family; Visit Provider Nurse Practitioner Family
DX: E11.622 Type 2 diabetes mellitus with other skin ulcer; L97.512 Non-pressure chronic ulcer of other part of right foot with fat layer exposed; Z79.84 Long term (current) use of oral hypoglycemic drugs
CPT/HCPCS: 73700

== ENCOUNTER → 2023-06-21 10:42 | Outpatient (CLI) | payer MEDICARE, MEDICAID, SELFPAY ==
--- NOTE | 2023-06-21 10:51 | XR_ITS ---
FINAL REPORT CLINICAL HISTORY: right 4th met wound infected x 2 days COMPARISON: 01/21/2023 FINDINGS: RIGHT FOOT 3 views of the right foot were obtained. There has been amputation of the right 1st digit. There is sclerosis and deformity of the 2nd proximal phalanx. There are hypertrophic changes at the 2nd metatarsophalangeal joint. Findings are concerning for sequela of septic arthritis and chronic osteomyelitis. A metallic density in the distal 2nd metatarsal measures 1.5 cm. There are mild hypertrophic changes of osteoarthritis at the 3rd, 4th, and 5th PIP joints. IMPRESSION: Postoperative changes from amputation of the right 1st digit. Findings concerning for sequela of septic arthritis and chronic osteomyelitis. Metallic density in the distal 2nd metatarsal. Reviewed, Interpreted and Dictated by Geronimo Ritter MD Transcribed by Lamar Hand Authenticated and [facility]
== END ==
PROVIDERS: PCP Nurse Practitioner Family; Visit Provider Podiatrist
DX: E11.621 Type 2 diabetes mellitus with foot ulcer (principal); L97.511 Non-pressure chronic ulcer of other part of right foot limited to breakdown of skin; M79.671 Pain in right foot; Z79.4 Long term (current) use of insulin
CPT/HCPCS: 73630

== ENCOUNTER → 2023-06-22 00:16 | Outpatient (CLI) | payer MEDICARE, MEDICAID, SELFPAY | PROVIDERS: PCP Podiatrist; Visit Provider Podiatrist | DX: E11.621 Type 2 diabetes mellitus with foot ulcer (principal); L97.519 Non-pressure chronic ulcer of other part of right foot with unspecified severity; B96.5 Pseudomonas (aeruginosa) (mallei) (pseudomallei) as the cause of diseases classified elsewhere; Z79.4 Long term (current) use of insulin | CPT/HCPCS: 87070; 87077; 87186; 87205 ==

== ENCOUNTER → 2023-06-28 10:51 | Outpatient (CLI) | payer MEDICARE, MEDICAID, SELFPAY ==
[2023-06-28 11:39] LABS: Basophils % 0.6 % (0.1-2.0); Eosinophils # 0.1 K/mm3 (0.0-0.4); Eosinophils % 0.8 % (0.1-12.0); Hematocrit 54.8 % (42.0-52.0); Hemoglobin 17.1 g/dL (14.1-18.0); Lymphocytes # 1.6 K/mm3 (0.7-4.5); Lymphocytes % 24.6 % (10-50); Mean Corpuscular HGB Conc 31.2 g/dL (31.8-35.4); Mean Corpuscular Hemoglobin 29.9 pg (27.0-31.2); Mean Corpuscular Volume 95.9 fl (80-94); Monocytes # 0.3 K/mm3 (0.1-1.0); Monocytes % 5.1 % (1.7-9.3); Neutrophils # 4.4 K/mm3 (1.8-7.8); Neutrophils % 68.8 % (37.0-80.0); Platelet Count 285 K/mm3 (142-424); Red Blood Count 5.71 M/mm3 (4.60-6.20); Red Cell Distribution Width 13.6 % (11.5-17.5); White Blood Count 6.4 K/mm3 (4.8-10.8)
[2023-06-28 12:10] LABS: Chloride 99 mmol/L (98-107); Potassium 5.1 mmoL/L (3.5-5.1); Sodium 136 mmol/L (136-145)
[2023-06-28 12:12] LABS: Blood Urea Nitrogen 17 mg/dl (9-20); Estimated Glomerular Filt Rate 33 ml/min (>60); GFR (African American) 40 ML/MIN (>60)
[2023-06-28 12:13] LABS: Alanine Aminotransferase 26 U/L (12-78); Albumin Level 4.4 g/dl (3.5-5.0); Albumin/Globulin Ratio 1.4 (1.1-1.8); Alkaline Phosphatase 110 U/L (38-126); Anion Gap 17.1 mEq/L (5-15); Aspartate Amino Transferase 28 U/L (17-59); Bilirubin,Total 0.8 mg/dl (0.2-1.3); Calcium 9.9 mg/dl (8.4-10.2); Carbon Dioxide 25 mmol/L (22.0-30.0); Globulin 3.1 g/dL (1.3-3.2); Glucose 318 mg/dl (74-100); Total Protein,Serum 7.5 g/dl (6.3-8.2)
[2023-06-28 12:19] LABS: C-Reactive Protein 1.8 mg/L (0-4)
[2023-06-28 13:39] LABS: Erythrocyte Sedimentation Rate 3 mm/hr (0-15)
== END ==
PROVIDERS: PCP Nurse Practitioner Family; Visit Provider Podiatrist
DX: L03.119 Cellulitis of unspecified part of limb (principal); M86.9 Osteomyelitis, unspecified; E11.621 Type 2 diabetes mellitus with foot ulcer; M25.512 Pain in left shoulder; Z79.4 Long term (current) use of insulin
CPT/HCPCS: 36415; 80053; 83036; 85025; 85651; 86140

== ENCOUNTER → 2023-07-05 06:40 | Outpatient (CLI) | payer MEDICARE, MEDICAID, SELFPAY ==
--- NOTE | 2023-07-05 06:43 | CT_ITS ---
FINAL REPORT TECHNIQUE: Thin section axial CT images with coronal and sagittal reformats were performed. This study was performed with techniques to keep radiation doses as low as reasonably achievable (ALARA). Individualized dose reduction techniques using automated exposure control or adjustment of mA and/or kV according to the patient's size were employed. CLINICAL HISTORY: right foot wound COMPARISON: 02/02/2023 FINDINGS: There has been an amputation of the great toe at the first metatarsal phalangeal joint. This was also present on the prior CT of January. There are postoperative changes in the second MTP with a wire in the head of the second metatarsal, also unchanged in appearance. There are subchondral cysts versus chronic erosions of the head of the second metatarsal and in the proximal second phalanx, once again unchanged. There are irregularities in the distal second through fifth proximal phalange ease consistent with postoperative change. There are mild degenerative changes as well as hammertoes of the second third and fourth toes. No new bony erosions or masses are seen. No fluid collections are identified. There is a soft tissue defect involving the plantar lateral forefoot. IMPRESSION: Multiple postoperative changes as described previously, without any new significant bony erosions or fluid collections identified. MRI is more effective for identifying subtle bone marrow edema and possible osteomyelitis cyst, so would consider MRI if clinically indicated. Reviewed, Interpreted and Dictated by Cole Hewitt III, MD Transcribed by Eugenia Andrea Authenticated and [facility]
== END ==
PROVIDERS: PCP Nurse Practitioner Family; Visit Provider Podiatrist
DX: E11.621 Type 2 diabetes mellitus with foot ulcer (principal); L97.511 Non-pressure chronic ulcer of other part of right foot limited to breakdown of skin; M86.9 Osteomyelitis, unspecified; Z79.4 Long term (current) use of insulin
CPT/HCPCS: 73700

== ENCOUNTER → 2023-07-12 10:12 | Outpatient (CLI) | payer MEDICARE, MEDICAID, SELFPAY ==
--- NOTE | 2023-07-12 10:28 | ECG_ITS ---
APPROVED REPORT Exam: Resting ECG HR:89 bpm ECG Measurements Heart Rate 89 AXES MI 161 P 39 QRSd 91 QRS 43 QT 313 T 37 QTc 360 Conclusion SINUS RHYTHM NORMAL ECG UNCONFIRMED REPORT Electronically signed by : Anshul Hernandez MD 07/13/2023 07:50:33
--- NOTE | 2023-07-12 10:37 | XR_ITS ---
FINAL REPORT TECHNIQUE: Chest PA & Lateral CLINICAL HISTORY: non healing wound of lower extremity. pre-op for right foot surgery. non smoker. COMPARISON: 09/26/2022 FINDINGS: 2 views of the chest were performed. The heart size is normal. The mediastinum is within normal limits. There is no acute cardiopulmonary process. There are no pleural effusions. There is no pneumothorax. The bony thorax appears intact. IMPRESSION: No acute cardiopulmonary process. Reviewed, Interpreted and Dictated by Geronimo Ritter MD Transcribed by Eugenia Andrea Authenticated and [facility]
[2023-07-12 10:49] LABS: Basophils # 0.1 K/mm3 (0-0.2); Basophils % 0.8 % (0.1-2.0); Eosinophils # 0.2 K/mm3 (0.0-0.4); Eosinophils % 2.9 % (0.1-12.0); Hematocrit 49.8 % (42.0-52.0); Hemoglobin 15.6 g/dL (14.1-18.0); Lymphocytes # 1.4 K/mm3 (0.7-4.5); Mean Corpuscular HGB Conc 31.3 g/dL (31.8-35.4); Mean Corpuscular Hemoglobin 29.9 pg (27.0-31.2); Mean Corpuscular Volume 95.8 fl (80-94); Mean Platelet Volume 8.1 fl (7.4-10.4); Monocytes # 0.5 K/mm3 (0.1-1.0); Monocytes % 7.7 % (1.7-9.3); Neutrophils % 65.6 % (37.0-80.0); Platelet Count 237 K/mm3 (142-424); Red Blood Count 5.19 M/mm3 (4.60-6.20); Red Cell Distribution Width 13.5 % (11.5-17.5); White Blood Count 6.1 K/mm3 (4.8-10.8)
[2023-07-12 11:15] LABS: Alanine Aminotransferase 17 U/L (12-78); Albumin Level 4.5 g/dl (3.5-5.0); Albumin/Globulin Ratio 1.5 (1.1-1.8); Alkaline Phosphatase 75 U/L (38-126); Anion Gap 17.1 mEq/L (5-15); Aspartate Amino Transferase 20 U/L (17-59); Bilirubin,Total 0.3 mg/dl (0.2-1.3); Blood Urea Nitrogen 23 mg/dl (9-20); Carbon Dioxide 26 mmol/L (22.0-30.0); Chloride 103 mmol/L (98-107); Estimated Glomerular Filt Rate 47 ml/min (>60); GFR (African American) 57 ML/MIN (>60); Glucose 222 mg/dl (74-100); Potassium 5.1 mmoL/L (3.5-5.1); Sodium 141 mmol/L (136-145); Total Protein,Serum 7.5 g/dl (6.3-8.2)
== END ==
PROVIDERS: PCP Nurse Practitioner Family; Visit Provider Podiatrist
DX: E11.40 Type 2 diabetes mellitus with diabetic neuropathy, unspecified (principal); E11.621 Type 2 diabetes mellitus with foot ulcer; E11.69 Type 2 diabetes mellitus with other specified complication; M25.512 Pain in left shoulder; L97.509 Non-pressure chronic ulcer of other part of unspecified foot with unspecified severity; M86.9 Osteomyelitis, unspecified; Z01.818 Encounter for other preprocedural examination; Z79.4 Long term (current) use of insulin; Z79.84 Long term (current) use of oral hypoglycemic drugs
CPT/HCPCS: 36415; 71046; 80053; 85025; 93005

== ENCOUNTER 2023-07-19 10:10 | Observation (INO) | payer MEDICARE, MEDICAID, SELFPAY ==
[2023-07-17 14:06] VITALS: BMI 32.9
[2023-07-19] VITALS (20 sets, daily range): BP systolic 103–160; BP diastolic 48–97; PULSE 77–117; RESP 16–20; TEMP 36.1–37.7; O2SAT 94–100; BMI 25.4
[2023-07-19 06:27] LABS: POC Glucose,Bedside 170 (70-110)
--- NOTE | 2023-07-19 06:54 | EXP.ANES.CKL ---
[facility] Disclaimer: The information contained in this section may have been updated after the patient was seen, as this information can be updated by other users. Medical History Abnormal ankle brachial index (ELLI) Diabetes mellitus, type 2 History of COVID-19 Hyperlipidemia Hypertension Leg pain Pneumonia Surgical History (Updated 07/19/23 @ 06:22 by Salomón Lehman RN) History of foot surgery Family History Other Family history of cancer Family history of diabetes mellitus type II Social History Smoking Status: Former smoker second hand exposure: No alcohol intake: never substance use type: denies use current occupational status: disabled Travel in the last 8 weeks: None household members: other housing: house current occupational exposures/hazards: No caffeine: No H Anesthesia Checklist Patient Identification Patient Identification: Arm Band and Family Structural Data Admitted From: Home Planned Operative Procedure/s: Right transmet Amputation Consent for Planned Operative Procedure(s) Verified: Yes Verified Documents: Surgical Consent NPO Status Verified Time NPO: 00:00 Additional verifications Patient : No Anesthesia Reactions: No Hx Blood Transfusions: No Blood Transfusion Reaction: No Cephalosporin Allergy: No Previous Colonoscopy: No Airway Assessment Mallampati Score:: Class II C-Spine Mobility Assessed: Yes TMJ Mobility Assessed: Yes Dentition: Edentulous Neurological Assessment Level of Consciousness: Awake, Alert and Appropriate Hx Seizures: No Numbness or tingling in extremities: No Anesthesia Plan Anesthesia Risk discussed: Yes ASA Class: III Anesthesia Type: MAC Preoperative Comments Pre-Operative Comments: NIDDM. No sensation in feet.
--- NOTE | 2023-07-19 09:05 | SUR.OPER ---
904: Family updated at 904
--- NOTE | 2023-07-19 09:47 | EXP.OP.NOTE ---
Date of procedure: 07/19/23 Pre-op Diagnosis:: Acquired foot deformity right side; Ulceration sub fourth metatarsal, chronic; history hallux amputation; history second toe and metatarsal surgery with retained broken off K-wire and cystic changes and hammertoe. Post-op Diagnosis:: Same Procedure performed:: Right foot transmetatarsal amputation Surgeon:: Osmin Byrd DPM DISPENSING LEAD:: Other Anesthesia: MAC Estimated blood loss (mL): 10 Operative findings:: Expected: Deformed toes/ ulcer sub fourth metatarsal/ history hallux amputation Right Operative note:: Right Foot Transmetatarsal amputation: Patient was seen in the preop holding area along with his sister who is his power of trademark attorney. I again discussed the condition with the patient and he was able to explain why he was there for transmetatarsal amputation due to chronic issues with his right foot. He says that his blood sugar has been running better the last several days and he is in good spirits and says there are been no changes in his recent medical history since we performed the initial physical exam preoperatively. He says that since he had multiple complications with this foot he wants to proceed with the transmetatarsal amputation. I again explained to he and his sister that there is still risks involved; and he still wants to proceed as this has continued to cause him problems with walking and everyday activity. He understands in the future he may require a below the knee amputation; however he and I have discussed that with no signs of active infection at the moment this is a better opportunity for him to have the best option to heal from this and proceed with his good quality life as he is able to. We explained also that postoperatively he will qualify medically for L5000 toe filler Insole to go in diabetic shoes. Reviewed the consent with the patient, initialed the right foot, and answered all questions to the patient satisfaction. The patient was then wheeled into the operating room and placed on the operating table in the supine position. Anesthesia was administered and the patient's right foot was prepped and draped in the usual usual aseptic manner. Esmarch bandage used to exsanguinate patient's right foot and ankle and tourniquet was inflated to 250 mmHg above the malleoli. Attention was then directed to the patient's forefoot and incision was made to circumscribe around the dorsal and plantar aspects of the toes which were then deepened through separate subtenons tissues cauterizing bleeders as necessary and then tenotomy Is Performed to Disarticulate the Second Third Fourth and Fifth Toes. Dissection Was Then Carried to Free up the Metatarsal Heads 1,2,3,4 and 5 and They Were All Visualized Well and Sagittal Bone Saw Was Used To Resect the Metatarsal Heads 1,2,3,4 and 5, with a Metatarsal Parabola Made and Visible, Preserving the Second Metatarsal Is Slightly Longer. We Found That Also during the Resection of the Second Metatarsal That the Retained K Wire That Had Been Broken off from a Prior Issue with the Patient Was Removed with the Head of the Metatarsal. Irrigated the Wound with Copious Months of Sterile Normal Saline. Cauterized Bleeders with Bovie. At This Point Reapproximated the Edges Identified the Plantar Wound Which Has Been a SubFourth Metatarsal and Resected It in Total through All Layers Epidermis Dermis and Subcutaneous Tissues. The Patient Also Had Had an Agitated Fifth Metatarsal Skin Blister from Applying the Bandages Too Tight at Home and Compromising Some of the Skin at That Layer As Well. With Closure of the Wound We Are Able to Modify and Flap the Plantar Medial Central Skin to Accommodate for the Lateral Defects of the Patient's Forefoot. To Facilitate an Help with Healing and Hemostasis, Applied Gelfoam inside the Wound. I Closed the Wound in Layers with Deep Tissues 2-0 Vicryl Subcutaneous Tissues with 3-0 Vicryl and the Skin Reapproximated and Held with 2-0 Nylon
--- NOTE | 2023-07-19 09:49 | P.PNANES_ITS ---
[facility] Anesthesia Record Part I Anesthesia Record I Intake, IV Amount: 900 Hydration: Adequate Estimated blood loss (mL): 10 Urine output (mL): 0 Blood Products used (#): none Blood Pressure: 128/84 SaO2: 94 Pulse Rate: 86 Airway Patency: Patent Respiratory Rate: 20 Temperature: 97.2 F Patient is:: Drowsy and Stable Stable to PACU at:: 09:35
[2023-07-19 09:53] LABS: POC Glucose,Bedside 183 (70-110)
--- NOTE | 2023-07-19 10:34 | HMH.PHAINT1 ---
Pharmacy Intervention Comments: MEDICATION RECONCILIATION COMPLETED ON PATIENT USING EXTERNAL FILL HISTORY FROM PHARMACY. -MICHELLE ABRAHAM, HENRYD
--- NOTE | 2023-07-19 13:03 | EXP.HP ---
History of Present Illness *Admission Date: 07/19/23 *Reason for visit:: Chief complaint: Right diabetic foot *History of present illness: This is a 42-year-old male that presented to his licensing worker for evaluation of his right foot chronic diabetic ulcerations not responding to conservative therapy. He described diminished sensation and poor wound healing. He was offered the opportunity for surgical correction and the patient was amenable. He underwent right TMA today (07/19/2023) with strict nonweightbearing and overnight monitoring postsurgically. He reports adequate pain control and denies fever, chills, chest pain, dyspnea, nausea, vomiting or diarrhea. He tolerated his perioperative IV antibiotic therapy with no adverse events. Nursing staff report that he remains afebrile with stable vital signs and saturating appropriately on room air. [facility] Medical History (Updated 07/19/23 @ 16:03 by Wilver Duran MD) Diabetes mellitus, type 2 History of COVID-19 Hyperlipidemia Hypertension Osteoarthritis Surgical History (Updated 07/19/23 @ 16:07 by Wilver Duran MD) History of foot surgery Family History Other Family history of cancer Family history of diabetes mellitus type II Social History Smoking Status: Former smoker second hand exposure: No alcohol intake: never substance use type: denies use current occupational status: disabled Travel in the last 8 weeks: None household members: other housing: house current occupational exposures/hazards: No caffeine: No Review of Systems Review of Systems Review of systems:: pertinent systems reviewed and negative unless documented below *Cardiovascular Cardiovascular: Denies chest pain and Denies dyspnea *Respiratory Respiratory: Denies dyspnea Meds Home Medications and Allergies Home Medications Medication Instructions Recorded Confirmed Type blood-glucose meter #1 ea 12/04/19 07/19/23 History fenofibrate 54 mg tablet 54 mg PO DAILY Cholesterol #90 tabs 12/06/21 07/19/23 Rx glipizide 10 mg tablet, extended 10 mg PO BID Diabetes #60 tabs 04/14/22 07/19/23 Rx release 24 hr lisinopril 5 mg tablet 5 mg PO DAILY High Blood Pressure 02/13/23 07/19/23 History empagliflozin 25 mg tablet 25 mg PO DAILY Diabetes 02/22/23 07/19/23 History (Jardiance) fluticasone propionate 50 1 spray intranasal DAILY Allergy 02/22/23 07/19/23 History mcg/actuation nasal Symptoms spray,suspension insulin glargine 100 unit/mL (3 17 unit SQ DAILY Diabetes 02/22/23 07/19/23 History mL) subcutaneous pen (Lantus Solostar U-100 Insulin) semaglutide 7 mg tablet (Rybelsus) 7 mg PO DAILY Diabetes 02/22/23 07/19/23 History atorvastatin 20 mg tablet 20 mg PO DAILY Cholesterol 07/19/23 07/19/23 History blood sugar diagnostic (Accu-Chek 07/19/23 07/19/23 History Pau Plus test strips) doxepin 100 mg capsule 100 mg PO DAILY Mood 07/19/23 07/19/23 History New Prescriptions to Start Prescriptions: Allergies Allergy/AdvReac Type Severity Reaction Status Date / Time No Known Allergies Allergy Verified 07/19/23 06:19 Exam Data for Last 24 hours Vital signs and Labs for Last 24 Hours: Temp Pulse Resp BP Pulse Ox O2 Del Method 97.8 F 81 18 103/67 L 98 Room Air 07/19/23 10:05 07/19/23 10:05 07/19/23 10:05 07/19/23 10:05 07/19/23 10:05 07/19/23 12:42 Laboratory Results - last 24 hr 07/19/23 06:18: POC Glucose 170 H 07/19/23 09:47: POC Glucose 183 H I & O for Last 24 hours: Intake & Output 07/16/23 07/17/23 07/18/23 07/19/23 23:59 23:59 23:59 23:59 Intake Total 1140 / 1140 Output Total 0 / 0 Balance 1140 / 1140 Weight 81.647 kg 78.245 kg Constitutional Constitutional: no acute distress, average body habitus and cooperative *Routine HEENT Exam Head: Present normocephalic and atraumatic Eye:
[2023-07-19 16:17] LABS: POC Glucose,Bedside 170 (70-110)
--- NOTE | 2023-07-19 17:13 | PC.NURSE ---
A&OX4. TOLERATING RA WELL. PT ARRIVED TO FLOOR WITH DRESSING COVERING ENTIRE R FOOT. PER REPORT AND PT STATEMENT, DIABETIC ULCER TO R HEAL, AND ALL METATARSALS REMOVED ON R SIDE (BIG TOE FROM PREVIOUS SURGERY.) PT HAS NOT HAD ANY C/O SINCE ARRIVAL TO FLOOR. UP TO WHEELCHAIR INDEPENDENTLY TO BATHROOM, TOLERATING VERY WELL. PT IS VERY INDEPENDENT. NO OTHER NEEDS NOTED AT THIS TIME. VSS.
[2023-07-19 21:40] LABS: POC Glucose,Bedside 194 (70-110)
[2023-07-20] VITALS: BP 133/77; PULSE 105; RESP 20; TEMP 36.8; O2SAT 98
[2023-07-20 04:00] VITALS: BP 111/65; PULSE 89; RESP 20; TEMP 36.8; O2SAT 98; BMI 25.3
[2023-07-20 06:32] LABS: POC Glucose,Bedside 99 (70-110)
[2023-07-20 07:01] LABS: Basophils % 0.3 % (0.1-2.0); Eosinophils # 0.1 K/mm3 (0.0-0.4); Eosinophils % 0.6 % (0.1-12.0); Hematocrit 43.7 % (42.0-52.0); Hemoglobin 13.9 g/dL (14.1-18.0); Lymphocytes # 1.1 K/mm3 (0.7-4.5); Lymphocytes % 11.9 % (10-50); Mean Corpuscular HGB Conc 31.9 g/dL (31.8-35.4); Mean Corpuscular Hemoglobin 30.1 pg (27.0-31.2); Mean Corpuscular Volume 94.1 fl (80-94); Mean Platelet Volume 8.3 fl (7.4-10.4); Monocytes # 0.7 K/mm3 (0.1-1.0); Monocytes % 7.5 % (1.7-9.3); Neutrophils # 7.1 K/mm3 (1.8-7.8); Neutrophils % 79.7 % (37.0-80.0); Platelet Count 238 K/mm3 (142-424); Red Blood Count 4.64 M/mm3 (4.60-6.20); Red Cell Distribution Width 13.2 % (11.5-17.5); White Blood Count 8.9 K/mm3 (4.8-10.8)
[2023-07-20 07:16] LABS: Anion Gap 16.7 mEq/L (5-15); Blood Urea Nitrogen 18 mg/dl (9-20); Calcium 8.9 mg/dl (8.4-10.2); Carbon Dioxide 22 mmol/L (22.0-30.0); Chloride 105 mmol/L (98-107); Creatinine Clearance Estimated 75 mL/min (50-200); Estimated Glomerular Filt Rate 55 ml/min (>60); GFR (African American) 67 ML/MIN (>60); Glucose 112 mg/dl (74-100); Potassium 4.7 mmoL/L (3.5-5.1); Sodium 139 mmol/L (136-145)
--- NOTE | 2023-07-20 07:25 | P.PNANES_ITS ---
[facility] Anesthesia Record Part II Anesthesia Record Part II Discharge Time: 10:05 Destination: Second Floor PACU nurse assessment reviewed?: Yes Patient Condition:: Good Anesthesia Complications:: None Swallowing reflex intact?: Yes Airway Patency: Patent Cyanosis?: No Blood Pressure: 103/67 SaO2: 98 Respiratory Rate: 18 Pulse Rate: 81 Temperature: 97.8 F Mental Status: Alert & Oriented Pain level:: 0 Nausea and/or vomitting:: None Intake, IV Amount: 0 Hydration: Adequate
[2023-07-20 07:26] VITALS: BP 103/67; PULSE 81; RESP 18; TEMP 36.6; O2SAT 98
[2023-07-20 07:31] LABS: Procalcitonin 0.189 ng/mL (0.0-2.0)
[2023-07-20 08:00] VITALS: BP 126/72; PULSE 102; RESP 18; TEMP 36.8; O2SAT 96
--- NOTE | 2023-07-20 09:49 | HMH.OTEV ---
OT Inpatient Evaluation Rehab OT IP Evaluation Start: 07/19/23 14:06 Freq: ONCE Status: Active Protocol: Document 07/20/23 09:38 [facility] (Rec: 07/20/23 09:49 [facility] [id number]) Rehab OT IP Assessment Subjective History Pt oriented x 3 on arrival. Pt agreeable to engage in therapy evaluation. Pt admitted on 07/19/23 following a Right foot transmetatarsal amputation. Prior to being in the hospital, he lived at home in an apartment alone. Pt claims he was independent with all ADLs and IADLs. He did not require any type of AE during daily tasks or functional transfers. Pt does have ~7 steps to get to his apartment. Pt has a past medical history of: Diabetes mellitus, type 2 History of COVID-19 Hyperlipidemia Hypertension Osteoarthritis Subjective I can do anything I am used to having surgeries on my foot . Objective Patient Orientation Person,Place,Birthday Upper Extremity Gross ROM WFL Bed Mobility bed mobility-scooting,bed mobility - supine/sit,bed mobility - rolling Assist Level Independent Transfer Training Sit/Stand Transfer Assist Level Supervision/Stand by Chair Transfer Ability Supervision/Stand by Chair Transfer Technique Sit to/from Ambulatory Chair Transfer Assistive Devices Rolling Walker Lower Body Dressing Ability Standby Assistance Rehab OT IP prob,goals,plan Problems Date of Evaluation: 07/20/23 Rehab Potential Rehab Potential Good Discharge Plan OT Discharge Plan Pt is planned to discharge today. He will have assistance from his sister and nephew once he returns home. Pt can return home once medically stable per physician . Therapist recommends crutches or rolling walker to assist in functional transfers
--- NOTE | 2023-07-20 10:01 | HMH.PTEV ---
Physical Therapy Evaluation Rehab PT IP Evaluation Start: 07/19/23 14:06 Freq: ONCE Status: Active Protocol: Document 07/20/23 09:58 [facility] (Rec: 07/20/23 10:01 [facility] [id number]) Subjective/History History History 42 yowm adm to [facility] for R TMA performed 07/19/23. He reports he lives alone, 7 steps to enter the home and he is generally independent with all mobility without AD. Subjective Subjective Pt reports no c/o pain this am . Pt given axillary crutches and trained on ambulation and stairs. New diagnosis of cancer in past 12 No months? Rehab PT IP Eval Objective Appearance Patient Behavior Appropriate Patient Orientation Person,Place,Time Difficulty following instructions none Speech Pattern Clear Ambulation Patient Able to Ambulate Yes Ambulation Observation Ambulation Distance (feet) 30 Ambulation Assistive Device Axillary Crutches Ambulation Ability Supervision/Stand by Balance Ability to Arise Able, w/o using arms Sitting Balance Steady, safe Standing Balance Narrow stance w/o support Dynamic Sitting Balance Ability Good Dynamic Standing Balance Ability Good Transfers Bed Transfer Ability Independent Chair Transfer Ability Supervision/Stand by Sit to Stand Bed Transfer Ability Supervision/Stand by Sit to Stand Chair Transfer Ability Supervision/Stand by Rehab PT IP prob,goals,plan Problems Date of Evaluation: 07/20/23 Discharge Plan PT Discharge Plan Pt able to maintain NWB of R LE with axillary crutches. He is appropriate to return home once medically stable for d/c. Eval Complexity Eval Charge Codes 74525 - High Complexity PHYSICIAN CERTIFICATION: I certify the specified therapy services for Cleve Aquino are required, authorized, and reviewed every 30 days.
--- NOTE | 2023-07-20 10:46 | EXP.DC.SUM ---
General Admission date:: 07/19/23 Discharge date: 07/20/23 HPI HPI HPI: This is a 42-year-old male that presented to his test tech for evaluation of his right foot chronic diabetic ulcerations not responding to conservative therapy. He described diminished sensation and poor wound healing. He was offered the opportunity for surgical correction and the patient was amenable. He underwent right TMA today (07/19/2023) with strict nonweightbearing and overnight monitoring postsurgically. He reports adequate pain control and denies fever, chills, chest pain, dyspnea, nausea, vomiting or diarrhea. He tolerated his perioperative IV antibiotic therapy with no adverse events. Nursing staff report that he remains afebrile with stable vital signs and saturating appropriately on room air. Hospital Course Hospital Course Hospital Course: 42-year-old male who presented to his test tech for chronic diabetic foot wound on right, diminished sensation and non-healing with conservative care. He elected to proceed with TMA. Problems addressed as follows: Diabetic foot with ulcers and peripheral neuropathy Postop day right transmetatarsal amputation Podiatry consult Gentle IV fluid resuscitation Perioperative IV antibiotic noted Trending postoperative labs Nonweightbearing on right Parentally administered controlled substance for comfort care Gabapentin therapy PT/OT consults Case management consult for discharge needs Diabetes Routine blood sugar monitoring Hemoglobin A1c 9% Basal insulin therapy Sliding scale insulin therapy SGLT2 inhibitor therapy Carbohydrate controlled diet Hypertension Routine blood sugar monitoring ROSAMARIA inhibitor therapy Hyperlipidemia Statin therapy fenofibrate therapy The patient was admitted after his operative procedure and nursing staff reported that he remained afebrile with stable vital signs and saturated appropriately on room air. PT and OT evaluated him postoperatively on the day of discharge. Case management assisted with discharge equipment needs including crutches and rolling walker. The patient identified improvement and requested to be discharged home to the care of his primary care provider and test tech. He understands the importance of improved blood sugar control for improved healing. He will follow-up with his PCP in 1 week for basic metabolic profile evaluation and continue with postsurgical wound care with test tech. He understands the importance of nonweightbearing on the right. I spent 35 minutes in ytab-ot-coak time with the patient and nursing staff concerning the discharge process. We discussed the admitting diagnoses and hospital course. We discussed identified improvement and the patient's desire to be discharged. We reviewed inpatient studies and imaging. The patient voiced understanding on the importance of follow-up with his primary care provider and test tech. The patient plans to be compliant with the medication regimen prescribed and follow-up appointments. He understands that he can return to the emergency department with any sudden changes or concerns. Exam Data for Last 24 hours Vital signs and Labs for Last 24 Hours: Temp Pulse Resp BP Pulse Ox O2 Del Method 98.3 F 102 H 18 126/72 96 Room Air 07/20/23 08:00 07/20/23 08:00 07/20/23 08:00 07/20/23 08:00 07/20/23 08:00 07/20/23 10:31 Laboratory Results - last 24 hr 07/19/23 16:09: POC Glucose 170 H 07/19/23 20:35: POC Glucose 194 H 07/20/23 06:20: POC Glucose 99 07/20/23 06:47: WBC 8.9, RBC 4.64, Hgb 13.9 L, Hct 43.7, MCV 94.1 H, MCH 30.1, MCHC 31.9, RDW 13.2, Plt Count 238, MPV 8.3, Neut % (Auto) 79.7, Lymph % (Auto) 11.9, Harding % (Auto) 7.5, Eos % (Auto) 0.6, Baso % (Auto) 0.3, Neut # (Auto) 7.1, Lymph # (Auto) 1.1, Harding # (Auto) 0.7, Eos # (Auto) 0.1, Baso # (Auto) 0.0, Sodium 139, Potassium 4.7, Chloride 105, Carbon Dioxide 22, Anion Gap 16.7 H, BUN 18, Creatinine 1.40 H, Estimated Creat Clear 75, Estimat
--- NOTE | 2023-07-20 10:48 | SW/DCPLANNER ---
Addendum entered by Camila Huerta 07/20/23 11:12: Clarisse greenfield/ [facility] stated that rolling walker will be delivered bedside today. Original Note: I received a consult on this patient regarding wound care. Per POD patient will not require wound care at time of discharge due to leaving surgical dressing in place till follow up appointment. Patient will need a rolling walker: patient information/order has been faxed to [facility]. Patient has no further needs at this time. Patient will discharge home this afternoon.
--- NOTE | 2023-07-20 11:11 | PC.NURSE ---
PT STATES THAT HIS RIDE IS NOT AVAILABLE TO PICK HIM UP UNTIL LATER THIS EVENING.
[2023-07-20 11:29] LABS: POC Glucose,Bedside 167 (70-110)
--- NOTE | 2023-07-21 14:58 | CARE MANAGER ---
Contacted patient's sister related to hospital discharge. She denies any questions or concerns. He is aware of follow up appointment. ROLANDO Tirado
== END 2023-07-20 15:50 | disposition home or self-care (01) ==
LOC: 2ND 10:11
PROVIDERS: Podiatrist; Admitting Provider Family Medicine; PCP Nurse Practitioner Family; Visit Provider Family Medicine
PROC: 0Y6M0Z0 Detachment at Right Foot, Complete, Open Approach (ICD-10-PCS; CPT 28805; principal; 2023-07-19 07:30)
DX: E11.621 Type 2 diabetes mellitus with foot ulcer (principal); R20.8 Other disturbances of skin sensation; Z89.431 Acquired absence of right foot; Z86.16 Personal history of COVID-19; E78.5 Hyperlipidemia, unspecified; M19.90 Unspecified osteoarthritis, unspecified site; Z87.891 Personal history of nicotine dependence; E11.40 Type 2 diabetes mellitus with diabetic neuropathy, unspecified
CPT/HCPCS: 28805; 36415; 80048; 82962; 84145; 85025; 88307; 96374; 97163; 97165; G0378

== ENCOUNTER → 2023-08-09 19:43 | Outpatient (CLI) | payer MEDICARE, MEDICAID, SELFPAY | PROVIDERS: PCP Podiatrist; Visit Provider Podiatrist | DX: Z48.01 Encounter for change or removal of surgical wound dressing (principal); Z89.431 Acquired absence of right foot; B96.89 Other specified bacterial agents as the cause of diseases classified elsewhere | CPT/HCPCS: 87070; 87205 ==

== ENCOUNTER 2023-10-25 09:00 | Outpatient (RCR) | payer MEDICARE, MEDICAID, SELFPAY ==
--- NOTE | 2023-08-18 12:34 | HMH.PTOPWND ---
Rehab Outpt Wound Evaluation Rehab OP Wound Evaluation Start: 08/18/23 12:27 Freq: Status: Active Protocol: Document 08/18/23 12:28 [facility] (Rec: 08/18/23 12:34 PHORGABRIELA [id number]) E-signed By Payam Dia, PT Subjective/History History History This is the initial PT eval for Cleve Aquino, 42 yowm who presents with R distal foot wound. He underwent R foot TMA ~ 1 mo ago with complications during wound healing. He reports no c/o pain due to diabetic neuropathy. He also reports he is maintaining NWB of the R LE. Subjective Subjective Currently no c/o pain. No TTP noted. Minimal per-wound skin maceration and no erythema present. New diagnosis of cancer in past 12 No months? Wound Eval Wound Right Distal Foot Wound Type Incision Is This a Chronic Wound Yes Wound Length (cm) 8.2 Wound Width (cm) 4.8 Wound Depth (cm) 1.2 Wound Bed Appearance Beefy Red,Yellow Percentage Granulated (%) 90 Percentage of Slough (%) 10 Wound Margins Description Well Defined Surrounding Tissue Appearance Surrency Drainage Description Serosanguineous Drainage Amount Moderate Wound Topical Solution/Irrigant Saline Irrigant Packing Type Specialty Absorptive Comment opticell Ag Primary Dressing Absorbant Pad Comment ABD pad Wound Secondary Dressing Type Gauze Roll/Wrap,Elastic Bandage Wound Debridement Method Sharps,Forceps,Gauze, Mechanical Wound Debridement Amount of Tissue Minimal Removed Dressing Change Patient Tolerance Tolerated Well Wound Problems/Impairments Impairments Problems/Impairmments Impaired Endurance,Impaired Transfers,Impaired Gait Pattern,Impaired Walking, Impaired Standing,Impaired Household Care,Wound Care Needs,Subjective C/O Pain, Impaired Self Care/Self Management Prognosis Rehab Potential Good Clinical Impression Consistent with Diagnosis Yes Short Term Goals Number of Weeks 4 Improve Ability to Shower/Bathe Self Yes Decrease Wound Area Yes: by 25% Low Voltage Electrician Goals Number of Weeks 6-8 Improve Ability For Household Care Yes Decrease Edema Yes: no pitting edema Decrease Wound Area Yes: by 75% Patient to be Ind w/ Home Wound Care/ Yes Dressing Changes Outpatient Therapy Plan of Care Treatment Plan May Include Therapeutic Exercise Including Home Yes Exercise Program Manual Therapy Techniques Yes Neuromuscular Re-education Yes Therapeutic Activities to Return to Yes Previous Functional/Work Level ADL/Self Care Education Yes Orthotics/Bracing/Splinting Yes Manual Lymphatic Drainage Yes Wound Care Yes Eval/Re-Eval Yes Frequency Times per week 1-2 Duration Number of Weeks 6-8 Addendums This patient is a candidate for social No or vocational rehab? Patient/Guardian verbally acknowledges Yes understanding of treatment program and consents to further treatment? Patient/Guardian verbally acknowledges Yes understanding of diagnosis, prognosis and goals for treatment? Eval Complexity PT Charges 88858 - High Complexity PHYSICIAN CERTIFICATION: I certify the specified therapy services for Cleve Aquino are required, authorized, and reviewed every 30 days.
--- NOTE | 2023-09-12 14:01 | HMH.RHREAS ---
Rehab Reassessment Rehab OP Re-assessment Start: 08/18/23 12:27 Freq: Status: Active Protocol: Document 09/12/23 13:55 [facility] (Rec: 09/12/23 14:01 [facility] [id number]) E-signed By Payam Dia, PT Rehab Re-assessment Subjective Subjective Pt reports no new c/o, feels he is doing very well all things considered. Objective Objective Notes R distal foot wound: L= 1.0 cm , W= 6.7 cm, D= 0.5 cm. Significant improvement in granulation tissue at the wound base. Wound healing steadily improved. Assessment Progress Assessment Progressing as Expected Assessment Notes Significant reduction of overall wound surface area. Skilled intervention continued to be needed to return to prior level of function. Patient goals met ST,2 LT Goals Not Met LT,3,4 Plan Plan Continue per initial POC Frequency of Therapy 1 x/wk Duration of therapy 4 wks Time and Billing Re-Eval Time 14 Re-Eval Billing Units 1 PHYSICIAN CERTIFICATION: I certify the specified therapy services for Cleve Aquino are required, authorized, and reviewed every 30 days.
== END 2023-10-25 10:30 | disposition home or self-care (01) ==
LOC: PT 09:00
PROVIDERS: PCP Podiatrist; Visit Provider Podiatrist
DX: E11.621 Type 2 diabetes mellitus with foot ulcer (principal); L97.512 Non-pressure chronic ulcer of other part of right foot with fat layer exposed; T81.31XA Disruption of external operation (surgical) wound, not elsewhere classified, initial encounter; Z89.431 Acquired absence of right foot; Z79.4 Long term (current) use of insulin
CPT/HCPCS: 97163; 97164; 97597; 97598

== ENCOUNTER 2024-03-08 17:40 | Emergency (ER) | payer MEDICARE, MEDICAID, SELFPAY ==
[2024-03-08 17:42] VITALS: BP 140/104; PULSE 86; RESP 18; TEMP 36.6; O2SAT 98; BMI 27.3
--- NOTE | 2024-03-08 20:19 | ECG_ITS ---
APPROVED REPORT Exam: Resting ECG HR:84 bpm ECG Measurements Heart Rate 84 AXES DC 154 P 34 QRSd 93 QRS 69 QT 342 T 15 QTc 383 Conclusion SINUS RHYTHM WITH OCCASIONAL SUPRAVENTRICULAR PREMATURE COMPLEXES NONSPECIFIC T-WAVE ABNORMALITY BORDERLINE ECG Electronically signed by : RICHARD ARRIAGA, 03/09/2024 00:35:38
[2024-03-08 20:30] LABS: Microscopic, Urine URINE MICROSCOPIC (MICROSCOPIC)
[2024-03-08 20:32] LABS: Basophils # 0.1 K/mm3 (0-0.2); Basophils % 1.1 % (0.1-2.0); Eosinophils # 0.1 K/mm3 (0.0-0.4); Eosinophils % 1.5 % (0.1-12.0); Hematocrit 51.3 % (42.0-52.0); Hemoglobin 16.5 g/dL (14.1-18.0); Lymphocytes # 1.7 K/mm3 (0.7-4.5); Lymphocytes % 20.3 % (10-50); Mean Corpuscular HGB Conc 32.2 g/dL (31.8-35.4); Mean Corpuscular Hemoglobin 30.7 pg (27.0-31.2); Mean Corpuscular Volume 95.5 fl (80-94); Mean Platelet Volume 8.4 fl (7.4-10.4); Monocytes # 0.4 K/mm3 (0.1-1.0); Neutrophils # 5.8 K/mm3 (1.8-7.8); Platelet Count 257 K/mm3 (142-424); Red Blood Count 5.37 M/mm3 (4.60-6.20); Red Cell Distribution Width 13.8 % (11.5-17.5); White Blood Count 8.1 K/mm3 (4.8-10.8)
[2024-03-08 20:35] LABS: Appearance,Urine CLEAR (Clear); Bilirubin,Urine Negative (Negative); Blood, Urine Negative (Negative); Color,Urine YELLOW (Yellow); Glucose,Urine (UA) 3+ (Negative); Ketones,Urine TRACE (Negative); Leukocyte Esterase,Urine Negative (Negative); Nitrate,Urine Negative (Negative); PH,Urine 5.5 (5.0-8.5); Protein,Urine Negative (Negative); Specific Gravity, Urine 1.025 (1.005-1.030); Urobilinogen,Urine 0.2 EU/dl (0.2)
[2024-03-08 20:39] LABS: Chloride 104 mmol/L (98-107)
[2024-03-08 20:40] LABS: Potassium 3.5 mmoL/L (3.5-5.1); Sodium 140 mmol/L (136-145)
[2024-03-08 20:42] LABS: Alanine Aminotransferase 46 U/L (12-78); Alkaline Phosphatase 102 U/L (38-126); Aspartate Amino Transferase 48 U/L (17-59); Bilirubin,Total 0.6 mg/dl (0.2-1.3); Blood Urea Nitrogen 24 mg/dl (9-20); Creatinine Clearance Estimated 93 mL/min (50-200); Estimated Glomerular Filt Rate 66 ml/min (>60); GFR (African American) 80 ML/MIN (>60)
[2024-03-08 20:43] LABS: Albumin Level 4.4 g/dl (3.5-5.0); Albumin/Globulin Ratio 1.3 (1.1-1.8); Anion Gap 12.5 mEq/L (5-15); Calcium 9.8 mg/dl (8.4-10.2); Carbon Dioxide 27 mmol/L (22.0-30.0); Globulin 3.3 g/dL (1.3-3.2); Glucose 110 mg/dl (74-100); Salicylate 10.3 mg/dL (2.0-20.0); Total Protein,Serum 7.7 g/dl (6.3-8.2)
[2024-03-08 20:46] LABS: Squamous Epithelial Cell,Urine Occasional #/hpf (0-5)
[2024-03-08 20:47] LABS: Amphetamine/Metha Screen,Urine Positive ng/ml (<1000); Benzodiazepines Screen,Urine Negative ng/ml (<200)
[2024-03-08 20:48] LABS: Acetaminophen < 10 ug/ml (10-30); Barbiturates Screen,Urine Negative ng/ml (<200); Ethyl Alcohol < 10 mg/dl (0-10)
[2024-03-08 20:49] LABS: Cannabinoid Screen,Urine Positive ng/ml (<50); Cocaine Screen,Urine Positive ng/ml (<300)
[2024-03-08 20:50] LABS: Methadone Screen,Urine Negative ng/ml (<300)
[2024-03-08 20:51] LABS: Opiate Screen,Urine Negative ng/ml (<300); Phencyclidine Screen,Urine Negative ng/ml (<25)
[2024-03-08 21:02] VITALS: BP 139/90; PULSE 71; RESP 18; TEMP 36.7; O2SAT 98
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
== END 2024-03-08 21:03 | disposition home or self-care (01) ==
PROVIDERS: Emergency Provider Emergency Medicine; PCP Nurse Practitioner Family
DX: R82.5 Elevated urine levels of drugs, medicaments and biological substances (principal); F15.90 Other stimulant use, unspecified, uncomplicated; I10 Essential (primary) hypertension; E78.5 Hyperlipidemia, unspecified; E11.9 Type 2 diabetes mellitus without complications; Z79.4 Long term (current) use of insulin; Z79.84 Long term (current) use of oral hypoglycemic drugs
CPT/HCPCS: 80053; 80307; 80329; 81001; 85025; 93005; 99283; G0480

== ENCOUNTER 2024-05-22 10:45 | Emergency (ER) | payer MEDICARE, MEDICAID, SELFPAY ==
[2024-05-22] VITALS (8 sets, daily range): BP systolic 101–143; BP diastolic 62–93; PULSE 68–94; RESP 16–18; TEMP 36.8–36.9; O2SAT 98–100; BMI 25.1
--- NOTE | 2024-05-22 11:08 | XR_ITS ---
FINAL REPORT CLINICAL HISTORY: swelling, pain, previous toe amputation 1 year ago COMPARISON: 01/21/2023 FINDINGS: RIGHT FOOT 3 views of the right foot were obtained. 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 There is no acute fracture or dislocation. Visualized joint spaces are normally aligned. Overlying soft tissue edema is noted. IMPRESSION: Postoperative changes and soft tissue edema. Reviewed, Interpreted and Dictated by Geronimo Ritter MD Transcribed by Cecilia Rhodes Authenticated and [facility]
[2024-05-22 11:34] LABS: Basophils % 0.3 % (0.1-2.0); Eosinophils # 0.1 K/mm3 (0.0-0.4); Eosinophils % 1.2 % (0.1-12.0); Hematocrit 41.6 % (42.0-52.0); Hemoglobin 13.9 g/dL (14.1-18.0); Lymphocytes % 11.9 % (10-50); Mean Corpuscular HGB Conc 33.5 g/dL (31.8-35.4); Mean Corpuscular Hemoglobin 32.3 pg (27.0-31.2); Mean Corpuscular Volume 96.5 fl (80-94); Mean Platelet Volume 7.9 fl (7.4-10.4); Monocytes # 0.6 K/mm3 (0.1-1.0); Monocytes % 6.4 % (1.7-9.3); Neutrophils # 6.9 K/mm3 (1.8-7.8); Neutrophils % 80.2 % (37.0-80.0); Platelet Count 227 K/mm3 (142-424); Red Blood Count 4.31 M/mm3 (4.60-6.20); White Blood Count 8.5 K/mm3 (4.8-10.8)
[2024-05-22 11:39] LABS: Alanine Aminotransferase 22 U/L (12-78); Albumin Level 3.9 g/dl (3.5-5.0); Albumin/Globulin Ratio 1.3 (1.1-1.8); Alkaline Phosphatase 64 U/L (38-126); Anion Gap 10.9 mEq/L (5-15); Aspartate Amino Transferase 33 U/L (17-59); Bilirubin,Total 1.4 mg/dl (0.2-1.3); Blood Urea Nitrogen 17 mg/dl (9-20); Calcium 8.9 mg/dl (8.4-10.2); Carbon Dioxide 27 mmol/L (22.0-30.0); Chloride 103 mmol/L (98-107); Creatinine Clearance Estimated 79 mL/min (50-200); Estimated Glomerular Filt Rate 60 ml/min (>60); GFR (African American) 73 ML/MIN (>60); Globulin 3.1 g/dL (1.3-3.2); Glucose 82 mg/dl (74-100); Potassium 4.9 mmoL/L (3.5-5.1); Sodium 136 mmol/L (136-145)
[2024-05-22 11:40] LABS: INR 0.97 (0.9-1.1); Prothrombin Time 10.9 seconds (10.1-12.5)
[2024-05-22 11:42] LABS: Lactic Acid 1.3 mmol/L (0.7-2.1)
--- NOTE | 2024-05-22 12:18 | ED_ITS ---
Discharge Plan Disposition Patient Disposition: Home, Self-Care Condition: Good Prescriptions Prescriptions: New levofloxacin 750 mg tablet 750 mg PO DAILY 10 Days Qty: 10 0RF bacitracin 500 unit/gram ointment 1 applic topical Q12H Qty: 28 0RF No Action Rybelsus 7 mg tablet 7 mg PO DAILY Jardiance 25 mg tablet 25 mg PO DAILY insulin glargine [Lantus Solostar U-100 Insulin] 100 unit/mL (3 mL) insulin pen 17 unit SQ DAILY (DME) blood-glucose meter Misc 1 each .ROUTE .MEDSUPPLY Qty: 1 Patient Comments: USE TO TEST BLOOD GLUCOSE ONCE DAILY AND NEEDED Rx Instructions: As directed fenofibrate 54 mg tablet 54 mg PO DAILY Qty: 90 0RF glipizide 10 mg tablet extended release 24hr 10 mg PO BID Qty: 60 3RF lisinopril 5 mg tablet 5 mg PO DAILY doxycycline hyclate 100 mg capsule 100 mg PO BID 10 Days Qty: 20 0RF levofloxacin 500 mg tablet 500 mg PO DAILY 10 Days Qty: 10 0RF atorvastatin 20 mg tablet 20 mg PO DAILY (DME) Accu-Chek Pau Plus test strp Strip See Rx Instructions .ROUTE .COMPLEX Rx Instructions: USE 1 STRIP TO CHECK GLUCOSE ONCE DAILY doxepin 100 mg capsule 100 mg PO DAILY Referrals Follow up/Referrals: Sarika Benito APRN [Primary Care Provider] - See instructions Activity Restrictions/Add. Instructions Additional Instructions/Restrictions: You were evaluated in the ER. You are appropriate for discharge at this time. Start taking the prescribed antibiotic as directed. Do not skip doses, do not stop taking it early. Use the prescribed ointment twice daily. Keep the wound clean and dry. Follow-up with wound care as scheduled. Also make an appoint with your primary care physician for reevaluation in 3 days. Return to the ER with new, worsening, or otherwise concerning symptoms. Clinical Impressions Clinical Impression: Diabetic foot ulcer, Cellulitis Print Language Print Language: Croatian Discharge ED Provider: Tc Rowe Adult HPI General Chief complaint: Extremity Problem,Nontraumatic Stated complaint: swelling in L foot, cold chills, headache Time Seen by Provider: 05/22/24 11:08 Mode of Arrival: Ambulatory Source of Information: Patient Limitations: No Limitations Description of Symptoms (Recalled from ER Triage Doc. by RN): Pt ambulatory to ED with cc of right foot swelling that started last night. Pt also states having a spot on his foot. Pt had right toes removed approx a year ago. Upon assessment pt had a ulcer on the bottom of his right foot. Pt also reports having a head ache and cold chills for the past two days. History of Present Illness HPI narrative: 43-year-old male history of diabetes with toe amputation on the right foot approximately 1 year ago presents to the ER for concerns of wound and swelling on the right foot. He states he has severe neuropathy and has no feeling in the foot. He realized he had an ulcer on the bottom of the right foot a few days ago but it seems to be getting more red and swollen. He does not specifically have pain because he has poor feeling. Patient reports chills and intermittent headaches. No neurodeficits, no fevers, no other associated symptoms at this time. Related Data Home Medications ?Medication ?Instructions ?Recorded ?Confirmed blood-glucose meter #1 ea 12/04/19 04/16/24 lisinopril 5 mg tablet 5 mg PO DAILY High Blood Pressure 02/13/23 04/16/24 empagliflozin 25 mg tablet 25 mg PO DAILY Diabetes 02/22/23 04/16/24 (Jardiance) insulin glargine 100 unit/mL (3 17 unit SQ DAILY Diabetes 02/22/23 04/16/24 mL) subcutaneous pen (Lantus Solostar U-100 Insulin) semaglutide 7 mg tablet (Rybelsus) 7 mg PO DAILY Diabetes 02/22/23 04/16/24 atorvastatin 20 mg tablet 20 mg PO DAILY Cholesterol 07/19/23 04/16/24 blood sugar diagnostic (Accu-Chek 07/19/23 04/16/24 Pau Plus test strips) doxepin 100 mg capsule 100 mg PO DAILY Mood 07/19/23 04/16/24 Previous Rx's ?Medication ?Instructions ?Recorded fenofibrate 54 mg tablet 54 mg PO DAILY Cholesterol #90 tabs 12/06/21 glipizide 10 mg tablet, extended 10 mg PO BID Diabetes #60 tabs 04/14/22 release 24 hr doxycycline hyclate 100 mg capsule 100 mg PO BID 10 days #20 caps 04/16/24 levofloxacin 500 mg tablet 500 mg PO DAILY cellulitis 10 days 04/16/24 #10 tabs bacitracin 500 unit/gram topical 1 applic topical Q12H #28 grams 05/22/24 ointment levofloxacin 750 mg tablet 750 mg PO DAILY 10 days #10 tabs 05/22/24 Allergies Allergy/AdvReac Type Severity Reaction Status Date / Time No Known Allergies Allergy Verified 04/16/24 14:29 [facility] Disclaimer: The information contained in this section may have been updated after the patient was seen, as this information can be updated by other users. Medical History Hyperlipidemia Hypertension History of COVID-19 Diabetes mellitus, type 2 Osteoarthritis Surgical History History of foot surgery Family History Other Family history of cancer Family history of diabetes mellitus type II Social History Smoking Status: Never smoker second hand exposure: No alcohol intake: never substance use type: denies use current occupational status: disabled Travel in the last 8 weeks: None household members: other housing: house current occupational exposures/hazards: No caffeine: No ROS Obtained: Yes All systems reviewed & no additional complaints except as documented Constitutional Constitutional: Reports chills and Reports headache(s) ENT Ears, Nose, Mouth, and Throat: Reports headache(s) Musculoskeletal Musculoskeletal: Reports joint swelling Integumentary/Breasts Skin/Breast: Reports redness and Reports wounds Neurologic Neurologic: Reports headache(s) Physical Exam General General appearance: alert and in no apparent distress Head Head exam: atraumatic and normocephalic Eye Eye exam: Present PERRL and EOMI ENT ENT exam: Present mucous membranes moist Neck Neck exam: Present normal inspection and full ROM Chest Chest inspection: Present symmetric chest wall rise Respiratory Respiratory exam: Absent respiratory distress or stridor Cardiovascular Cardiovascular exam: Present regular rate and normal rhythm Extremities Exam Extremities exam: Present full ROM and joint swelling (Swelling of the distal right foot with associated erythema and wound) Neurological Exam Neurological exam: Present alert and oriented X3; Absent motor sensory deficit (Patient has baseline peripheral neuropathy, no new motor or sensory deficits) Psychiatric Psychiatric exam: Present normal affect and normal mood Skin Skin exam: Present warm, dry and erythema (Swelling, erythema, and associated wound on the distal right foot. There appears to be a diabetic wound/ulcer at approximately the second/third metatarsal on the plantar aspect. This is only partial-thickness. There is yellow material, erythema, and slight heat associated with it. No fluctuance.) Medical Decision Making Medical Records Medical records reviewed: Yes I reviewed the patient's medical records. Mic Inquiry Pt receiving controlled substance: No Vital Signs: 05/22/24 10:59 05/22/24 11:00 05/22/24 11:31 Temperature 98.4 F Temperature Source Oral Pulse Rate 93 H 94 H Pulse Rate [Left Radial] 89 Respiratory Rate 18 Blood Pressure 121/82 111/76 Blood Pressure [Right Arm] 143/93 H Blood Pressure Mean [Right Arm] 109 Blood Pressure Source [Right Arm] Automatic Cuff 02 Sat by Pulse Oximetry 99 99 100 Oxygen Delivery Method Room Air 05/22/24 12:00 05/22/24 12:31 05/22/24 13:01 Temperature Temperature Source Pulse Rate 89 91 H 82 Pulse Rate [Left Radial] Respiratory Rate Blood Pressure 107/62 L 101/79 L 110/70 Blood Pressure [Right Arm] Blood Pressure Mean [Right Arm] Blood Pressure Source [Right Arm] 02 Sat by Pulse Oximetry 100 99 100 Oxygen Delivery Method Room Air Room Air Room Air 05/22/24 13:30 Temperature Temperature Source Pulse Rate 94 H Pulse Rate [Left Radial] Respiratory Rate Blood Pressure 101/64 L Blood Pressure [Right Arm] Blood Pressure Mean [Right Arm] Blood Pressure Source [Right Arm] 02 Sat by Pulse Oximetry 98 Oxygen Delivery Method Lab Data Lab Results 05/22/24 11:22: WBC 8.5, RBC 4.31 L, Hgb 13.9 L, Hct 41.6 L, MCV 96.5 H, MCH 32.3 H, MCHC 33.5, RDW 14.0, Plt Count 227, MPV 7.9, Neut % (Auto) 80.2 H, Lymph % (Auto) 11.9, [place] % (Auto) 6.4, Eos % (Auto) 1.2, Baso % (Auto) 0.3, Neut # (Auto) 6.9, Lymph # (Auto) 1.0, [place] # (Auto) 0.6, Eos # (Auto) 0.1, Baso # (Auto) 0.0, ESR 43 H, PT 10.9, INR 0.97, Sodium 136, Potassium 4.9, Chloride 103, Carbon Dioxide 27, Anion Gap 10.9, BUN 17, Creatinine 1.30 H, Estimated Creat Clear 79, Estimated GFR 60, Est GFR ( Amer) 73, Glucose 82, Lactate 1.3, Calcium 8.9, Total Bilirubin 1.4 H, AST 33, ALT 22, Alkaline Phosphatase 64, C-Reactive Protein 109.0 H, Total Protein 7.0, Albumin 3.9, Globulin 3.1, Albumin/Globulin Ratio 1.3 05/22/24 11:22 05/22/24 11:22 Orders (Tests/Meds): ED MEDICATIONS Discontinued Medications Generic Name Dose Route Start Last Admin Trade Name Freq PRN Reason Stop Dose Admin Dalbavancin 1,500 mg/ Dextrose 250 mls @ 500 mls/hr 05/22/24 14:20 05/22/24 14:58 IV 05/22/24 14:21 500 mls/hr ONCE ONE Administration ORDERS Category Date Time Status XR foot RT min 3V Stat Exams 05/22/24 11:08 Completed C-Reactive Protein Stat Lab 05/22/24 11:22 Completed Complete Blood Count Auto Diff Stat Lab 05/22/24 11:22 Completed Comprehensive Metabolic Panel Stat Lab 05/22/24 11:22 Completed ESR [Erythrocyte Sedimentation Rate] Stat Lab 05/22/24 11:22 Completed Lactic Acid Stat Lab 05/22/24 11:22 Completed Prothrombin Time INR Stat Lab 05/22/24 11:22 Completed Medical Decision Narrative: In summary, this 43-year-old male presents to the emergency department today with wound, redness of the right foot. On initial evaluation patient is hemodynamically stable, afebrile, no significant tenderness to the right foot because patient has neuropathy, however there is wound and associated swelling. Differential diagnosis includes but is not limited to cellulitis, osteomyelitis, diabetic ulcer, I considered abscess but do not appreciate any fluctuance on the wound appears to be open. Based on these concerns, I ordered serum labs, x-ray. Labs personally reviewed demonstrate mild anemia, no leukocytosis, CRP and ESR are elevated but not specific for any direct pathology. Creatinine is slightly elevated at 1.3 however this is consistent with prior based on my review of previous labs. XR personally interpreted demonstrates the foot is status post amputation, there is some periosteal reaction of the first 2 metatarsals. I discussed this with the radiologist who read the x-ray and he stated that this does not appear to be osteomyelitis, but rather post amputation periosteal reaction. He does not believe there is presence of osteomyelitis at this time. Based on this, patient will be treated for cellulitis. Patient received Dalvance in the ER. I discussed his status as a diabetic with pharmacy and they also recommended levofloxacin outpatient for additional coverage. This has been prescribed. I also prescribed bacitracin for home wound care. Patient has a follow-up appointment already scheduled with wound care. After completion of Dalvance patient was appropriate for discharge. Patient was given instructions on symptomatic management, follow up instructions, and return precautions for the emergency department. Patient indicated understanding and was discharged in stable condition. Critical Care Critical Care Time Critical Care Time: No
[2024-05-22 13:03] LABS: Erythrocyte Sedimentation Rate 43 mm/hr (0-15)
--- NOTE | 2024-05-22 14:01 | PC.NURSE ---
Dr. Rowe notified of critical potassium of 2.9
--- NOTE | 2024-05-22 14:19 | PC.NURSE ---
I spoke with Hieu MICHELE to see if he had any suggestions on antibiotic coverage for cellulitis/diabetic foot ulcer. He suggested Dalvance here and PO levaquin for at home.
[2024-05-22] MEDS: DALBAVANCIN HCL 1,500 MG in DEXTROSE 5 % IN WATER 250 ML 500 MG IV (14:58)
== END 2024-05-22 15:51 | disposition home or self-care (01) ==
PROVIDERS: Emergency Provider Emergency Medicine; PCP Nurse Practitioner Family
DX: E11.621 Type 2 diabetes mellitus with foot ulcer (principal); L97.511 Non-pressure chronic ulcer of other part of right foot limited to breakdown of skin; L03.115 Cellulitis of right lower limb; E11.40 Type 2 diabetes mellitus with diabetic neuropathy, unspecified; E78.5 Hyperlipidemia, unspecified; I10 Essential (primary) hypertension; Z79.4 Long term (current) use of insulin; Z79.84 Long term (current) use of oral hypoglycemic drugs
CPT/HCPCS: 73630; 80053; 83605; 85025; 85610; 85651; 86140; 96374; 99284; J0875; J7060

== ENCOUNTER 2025-03-25 14:20 | Outpatient (CLI) | payer MEDICARE, MEDICAID, SELFPAY ==
--- NOTE | 2025-03-25 | ECG_ITS ---
APPROVED REPORT Exam: Resting ECG HR:95 bpm ECG Measurements Heart Rate 95 AXES AR 176 P 47 QRSd 101 QRS 69 QT 336 T 14 QTc 389 Conclusion SINUS RHYTHM NORMAL ECG UNCONFIRMED REPORT Electronically signed by : Anshul Hernandez MD 03/27/2025 08:36:25
--- NOTE | 2025-03-25 14:39 | XR_ITS ---
FINAL REPORT CLINICAL HISTORY: deformity of left foot/toes COMPARISON: 01/21/2023 FINDINGS: LEFT FOOT Three views of the left foot demonstrate no acute fracture or dislocation. There is a surgical anchor at the base of the third metatarsal. Multijoint degenerative disease is seen. Second PIP joint appears fused. The visualized joint spaces are normally aligned. The soft tissues are unremarkable. IMPRESSION: No acute bony abnormality. Degenerative and postoperative changes, stable from prior exam. Reviewed, Interpreted and Dictated by Cady Plascencia MD Transcribed by Yvonne De Dios Authenticated and [facility]
[2025-03-25 14:47] LABS: Basophils % 0.7 % (0.1-2.0); Eosinophils # 0.2 Kmm3 (0.0-0.4); Eosinophils % 3.9 % (0.1-12.0); Hematocrit 45.7 % (42.0-52.0); Hemoglobin 15.9 g/dL (14.1-18.0); Immature Granulocytes # 0.04 10^3uL; Immature Granulocytes % 0.7 %; Lymphocytes # 1.6 K/mm3 (0.7-4.5); Lymphocytes % 28.4 % (10-50); Mean Corpuscular HGB Conc 34.8 g/dL (31.8-35.4); Mean Corpuscular Hemoglobin 30.6 pg (27.0-31.2); Mean Corpuscular Volume 87.9 fl (80-94); Mean Platelet Volume 9.9 fl (7.4-10.4); Monocytes # 0.5 K/mm3 (0.1-1.0); Monocytes % 8.1 % (1.7-9.3); Neutrophils # 3.3 K/mm3 (1.8-7.8); Neutrophils % 58.2 % (37.0-80.0); Nucleated Red Blood Cells # 0 10^3/uL; Nucleated Red Blood Cells % 0 %; Platelet Count 186 K/mm3 (142-424); Red Cell Distribution Width 12.7 % (11.5-17.5); Red Cell Distribution Width-SD 40.8 fL; White Blood Count 5.7 K/mm3 (4.8-10.8)
[2025-03-25 15:06] LABS: Hemoglobin A1C 10.7 % (4.0-6.0)
[2025-03-25 15:09] LABS: Erythrocyte Sedimentation Rate 1 mm/hr (0-15)
[2025-03-25 15:55] LABS: Alanine Aminotransferase 25 U/L (12-78); Albumin Level 4.4 g/dl (3.5-5.0); Albumin/Globulin Ratio 1.9 (1.1-1.8); Alkaline Phosphatase 62 U/L (38-126); Anion Gap 14.2 mEq/L (5-15); Aspartate Amino Transferase 24 U/L (17-59); Bilirubin,Total 0.6 mg/dl (0.2-1.3); Blood Urea Nitrogen 22 mg/dl (9-20); Calcium 9.2 mg/dl (8.4-10.2); Carbon Dioxide 28 mmol/L (22.0-30.0); Chloride 106 mmol/L (98-107); Estimated Glomerular Filt Rate 44 ml/min (>60); GFR (African American) 53 ML/MIN (>60); Globulin 2.3 g/dL (1.3-3.2); Glucose 185 mg/dl (74-100); Potassium 4.2 mmoL/L (3.5-5.1); Sodium 144 mmol/L (136-145); Total Protein,Serum 6.7 g/dl (6.3-8.2)
== END 2025-03-25 23:59 | disposition home or self-care (01) ==
LOC: LAB 14:21
PROVIDERS: PCP Nurse Practitioner Family; Visit Provider Podiatrist
DX: E11.40 Type 2 diabetes mellitus with diabetic neuropathy, unspecified (principal); Z01.818 Encounter for other preprocedural examination; M20.5X2 Other deformities of toe(s) (acquired), left foot; M20.42 Other hammer toe(s) (acquired), left foot
CPT/HCPCS: 36415; 73630; 80053; 83036; 85025; 85651; 93005